=== PATIENT | male | born 1945 | race Caucasian/White ===

== ENCOUNTER 2020-01-10 08:03 | Outpatient (CLI) | payer MEDICARE, BC, OTHER, SELFPAY ==
--- NOTE | ~2020-01-10 | CT_ITS ---
EXAMINATION: CT abdomen pelvis w con DATE: 01/10/2020 08:57 INDICATION: Prostate cancer TECHNIQUE: Computed tomography (CT) of the abdomen and pelvis was performed with 100 cc Omnipaque 350 intravenous contrast. The dose-length product was 473.31 mGy-cm. Automated exposure control and iter ative reconstruction technique were employed. COMPARISON: None. FINDINGS: Dependent atelectasis lung bases. Heart size normal. No significant vascular abnormality. N o lymphadenopathy. There are surgical changes consistent with vasectomy. Fatty infiltration of the liver. Small subcentimeter hypodensities of the liver, most likely benign c ysts or hemangioma. Gallbladder is present. The spleen, pancreas, adrenal glands and kidneys are unre markable. Enlarged prostate gland. Mild bladder wall thickening. Nonobstructive bowel gas pattern. No free air or free fluid. Levoscoliosis. Mild lumbar spondylosis. No osteolytic or osteoblastic lesions. IMPRESSION: 1. Enlarged prostate gland with bladder wall thickening which may be due to hypertrophy or cystitis. Reviewed, dictated and finalized at location B. IMPRESSION: 1. Enlarged prostate gland with bladder wall thickening which may be due to hyp ertrophy or cystitis.
[2020-01-10 08:46] LABS: Estimated Glomerular Filt Rate > 60
== END 2020-01-10 08:04 | disposition home or self-care (01) ==
PROVIDERS: PCP Family Medicine; Visit Provider Urology
DX: C61 Malignant neoplasm of prostate (principal)
CPT/HCPCS: 36415; 74177; Q9967

== ENCOUNTER 2020-01-22 07:46 | Outpatient (CLI) | payer MEDICARE, BC, OTHER, SELFPAY ==
--- NOTE | 2020-01-22 08:50 | ECG_ITS ---
Measurements Intervals [place] Rate: 64 P: 28 IA: 165 QRS: 6 QRSD: 94 T: 83 QT: 398 QTc: 413 Interpretive Statements SINUS RHYTHM NONSPECIFIC T-WAVE ABNORMALITY- HIGH LATERAL LEADS BASELINE WANDER- V4 BORDERLINE ECG Electronically Signed On 01-22-2020 9:07:20 CDT by Jesus Crooks D.O.
[2020-01-22 09:26] LABS: Basophils Percent Auto 0.5 % (0.2-1.2); Eosinophils Absolute Auto 0.1 K/mm3 (0-0.3); Eosinophils Percent Auto 3.5 % (0-4.4); Hematocrit 44.8 % (42.0-52.0); Immature Granulocyte Absolute 0.02 K/mm3 (0.00-0.031); Immature Granulocyte Percent A 0.5 % (0-0.5); Lymphocytes Absolute Auto 1.33 K/mm3 (0.9-3.2); Lymphocytes Percent Auto 33.3 % (18.3-44.2); Mean Corpuscular HGB Conc 33.5 g/dl (32-36); Mean Corpuscular Hemoglobin 31.9 pg (26-34); Mean Corpuscular Volume 95.3 fl (80-100); Mean Platelet Volume 10.2 fl (7.4-10.4); Monocytes Absolute Auto 0.4 K/mm3 (0.1-0.6); Monocytes Percent Auto 9.5 % (2.6-8.5); Neutrophils Absolute Auto 2.1 K/mm3 (1.3-6.7); Neutrophils Percent Auto 52.7 % (45.5-73.1); Platelet Count Result 161 k/mm3 (150-375); Red Cell Distribution Width 12.6 % (11.5-14.5)
[2020-01-22 09:33] LABS: INR 1.1; Prothrombin Time 13.4 Seconds (11.1-14.7)
[2020-01-22 09:34] LABS: Partial Thromboplastin Time 27.6 SECONDS (22.3-36.8)
[2020-01-22 09:39] LABS: Alanine Aminotransferase 28 U/L (4-50); Albumin Level 4.4 g/dL (3.5-5.1); Alkaline Phosphatase 57 U/L (38-126); Anion Gap 9.1 mmol/L (7-16); Aspartate Amino Transferase 27 U/L (17-59); Bilirubin,Total 0.6 mg/dL (0.2-1.3); Blood Urea Nitrogen 10 mg/dL (9-20); Calcium 9.4 mg/dL (8.4-10.2); Carbon Dioxide 29 mmol/L (22-30); Chloride 105 mmol/L (98-107); Estimated Glomerular Filt Rate > 60; Glucose 80 mg/dL (75-110); Potassium 4.1 mmol/L (3.4-5.0); Sodium 139 mmol/L (137-145)
== END 2020-01-22 07:47 | disposition home or self-care (01) ==
LOC: ANHSURGERY 07:50
PROVIDERS: PCP Family Medicine; Visit Provider Urology
DX: C61 Malignant neoplasm of prostate (principal); R94.31 Abnormal electrocardiogram [ECG] [EKG]
CPT/HCPCS: 36415; 80053; 85025; 85610; 85730; 86850; 86900; 86901; 87086; 93005

== ENCOUNTER 2020-01-26 00:54 | Outpatient (CLI) | payer MEDICARE, BC, OTHER, SELFPAY ==
[2020-01-26 18:30] LABS: SARS-CoV-2 RNA PCR Negative
== END 2020-01-26 00:55 | disposition home or self-care (01) ==
LOC: ANHCOVIDDT 00:55
PROVIDERS: PCP Family Medicine; Visit Provider Urology
DX: Z01.812 Encounter for preprocedural laboratory examination (principal); Z11.59 Encounter for screening for other viral diseases
CPT/HCPCS: 87635; C9803; U0003

== ENCOUNTER 2020-01-29 13:40 | Inpatient (IN) | payer MEDICARE, BC, OTHER, SELFPAY ==
[2020-01-22 08:18] VITALS: BP 156/80; PULSE 78; RESP 20; TEMP 36.7; O2SAT 97; BMI 24.2
--- NOTE | 2020-01-28 10:06 | WPDANESEPP ---
Anes - Eval Pre Procedure Procedure: Operation Date: 01/29/20 07:30 Proposed Procedures p Robotic Assisted Nerve Sparing Prostatectomy With Pelvic Lymph Node Dissection - Jama Meredith MD Date/Time: 01/28/20 10:06 Pre Op Diagnosis: Prostate Ca Patient Data Age: 74 Gender: M Height: 1.83 m Weight: 81 kg Last Vital Signs Temp 36.7 C 01/22/20 08:18 Pulse 78 01/22/20 08:18 Resp 20 01/22/20 08:18 BP 156/80 H 01/22/20 08:18 Pulse Ox 97 01/22/20 08:18 Allergies Allergy/AdvReac Type Severity Reaction Status Date / Time No Known Allergies Allergy Unverified 01/22/20 08:10 Home Medications Medication Instructions Recorded Confirmed Type aspirin 81 mg tablet,delayed 81 mg PO DAILY 06/01/19 01/22/20 History release cholecalciferol (vitamin D3) 25 1,000 unit PO DAILY 06/01/19 01/22/20 History mcg (1,000 unit) tablet fluticasone propionate 50 2 spray NASAL BID #54.6 ml 08/14/19 01/22/20 Rx mcg/actuation nasal spray,suspension metronidazole 0.75 % topical cream 1 applic TOPICAL BID #45 gm 01/15/20 01/22/20 Rx tamsulosin 0.4 mg capsule 0.4 mg PO DAILY #90 cap 01/15/20 01/22/20 Rx azelastine 137 mcg (0.1 %) nasal 137 mcg NASAL Q12H #30 ml 01/18/20 01/22/20 Rx spray aerosol calcium carbonate-vitamin D3 1 cap PO DAILY 01/22/20 01/22/20 History [Calcium 600 + D(3)] doxycycline monohydrate 100 mg PO HS 01/22/20 01/22/20 History Patient hx anesthesia problems: none Family hx anesthesia problems: none PMFSH Past Medical History Medical History Alcohol use 2 drinks/day Arthritis BP (high blood pressure) BPH (benign prostatic hyperplasia) Degenerative disc disease Enlarged prostate GERD (gastroesophageal reflux disease) MALINDA (obstructive sleep apnea) Rosacea Stroke Surgical History Surgical History History of tonsillectomy History of tonsillectomy and adenoidectomy History of vasectomy Family History Family History Mother Family history of Alzheimer's disease Osteoporosis Arthritis Father , From throat cancer. Family history of throat cancer, Onset Age: 49 Social History Social History Smoking packs per day: 1 Smoking cigarettes per day: 20.0 Smoking status: Former smoker Tobacco type: cigarettes Second hand tobacco smoke exposure: No Smoking end date: 06/27/86 Additional smoking assessment comments: 1PK/DAY/AGE [age] Alcohol intake: current Drinks per week: 14 Substance use: never Substance use type: does not use Additional living arrangements comments: Spouse-Inessa Khan Gender identity (if verbalized by the patient): Male Spiritual care concerns: No Exam Day of Procedure 01/28/20 10:06
[2020-01-29] VITALS (15 sets, daily range): BP systolic 119–169; BP diastolic 70–96; PULSE 73–92; RESP 10–20; TEMP 36.4–37.2; O2SAT 97–100; BMI 24.6
[2020-01-29] MEDS: LACTATED RINGERS 1,000 ML 30 ML IV CONT ×2 (06:53→11:53)
--- NOTE | 2020-01-29 07:02 | P.PNAN_ITS ---
Anes - Eval Final PreProcedure Day of Procedure 01/29/20 07:02 Patient weight: normal Heart: regular rate and rhythm Lungs: clear to auscultation Airway: Mallampati scale class II Neurological: alert and oriented Last oral intake: >/= 8 hours ASA classification: III Emergent: no Anesthetic plan: proceed Anesthesia type and monitoring: general ETT and standard monitoring Informed Consent: The patient's anesthetic plan and its attendant risks and b enefits were discussed with the patient/family/POA. Questions were solicited and answers provided to the satisfaction of the patient/family/POA.
--- NOTE | 2020-01-29 07:16 | WPDHPUPDATE1 ---
History and Physical Update Update Date/Time: 01/29/20 07:16 History and Physical has been reviewed, including an updated exam of the patient. There are NO changes in the patient's condition. Risks, benefits, and alternatives have been discussed and questions answered. Patient agrees to proceed with procedure. Plan for robotic assist nerve sparing prostatectomy with possible PLND
[2020-01-29] MEDS: ceFAZolin 2 GM/D5W 50 ML 2 GM/50 ML BAG IVPB (07:25)
--- NOTE | 2020-01-29 11:36 | PM.PROC ---
Procedure Note - Detailed Date of procedure: 01/29/20 Pre-op diagnosis: Prostate Ca Post-op diagnosis: same Procedure performed: Robotic assisted nerve-sparing prostatectomy with left pelvic lymph node dissection and urethral dilation Description of procedure: patient was taken to the operative suite and correctly identified. Once anesthesia was obtained was placed in dorsal lithotomy position and prepped and draped usual sterile fashion. Was difficult to place a 20 Indonesian Edouard as his meatus was somewhat tight. We thus dilated up to 22 Indonesian with male sounds. A 20 Indonesian Edouard was then placed inflated with 15 cc sterile water. The supraumbilical incision was then made carried down to the rectus fascia. Veress needle was then inserted in the abdomen was insufflated to 15 mmHg pressure. Camera port was then placed under direct vision. Appropriate working ports were placed in the their usual positions. Patient was placed in steep Trendelenburg position and the robot was docked. He did have quite a bit of adhesions along the sigmoid colon area. These were taken down. Posterior approach was then performed. Seminal vesicles were dissected out in their entirety and the vas were transected. Dorsal venous complex was isolated using 0 Vicryl in secured to the pubic bone. Bladder neck was then incised. Posterior bladder neck was open. There was a good bladder neck sparing procedure performed. Bilateral nerve-sparing then was performed a standard fashion. Pedicles were isolated and clipped. Dorsal venous complex was transected. Urethra was also transected. Specimen was placed in Endo-Catch bag. We did a left pelvic lymph node dissection. As that was the side of involvement of the carcinoma on the prostate biopsy. Boundaries were the Graham's ligament distally. external iliac vein dorsally in the obturator nerve ventrally. Proximally to the bifurcation of the vessels. Surgicel was placed over the neurovascular bundle. As well as in the left obturator fossa. We then approximated the posterior denonvelliers. The urethral stump was then anastomosed to the bladder neck using V lock suture in a running fashion. There was good mucosa to mucosa approximation. Eighteen Indonesian Edouard was placed with 10 cc in the balloon. The bladder was filled with 120 cc of sterile water. There was no evidence of extravasation. Price-Young drain was then placed through the 3rd arm port site. This was then secured. The robot was undocked. All lap count needle count sponge counts were correct. Specimen was then brought out through midline incision. Rectus was closed using 0 Vicryl in a running fashion. Subcuticular stitches were then placed. We anesthetized the port sites using 1% lidocaine. Patient tolerated procedure well without complications and was taken recovery room stable condition. Anesthesia: JUJUA Surgeon: Jama Meredith MD Estimated blood loss (mL): 250 Drains: Yes Packing: No Pathology: yes Complications: No immediate complications Condition: stable Disposition: PACU
[2020-01-29] MEDS: ONDANSETRON INJ 4 MG/2 ML VIAL IV PUSH (12:09)
--- NOTE | 2020-01-29 13:05 | SUR.PHASEI ---
1304 - Dr. Meredith at bedside assessing LANDON drain and catheter
--- NOTE | 2020-01-29 16:19 | PC.NURSE ---
[id number] This patient, Manuel Khan, was admitted to [facility] Surg Room 310-01. Patient/family oriented to hospital policies and general routines including ID bracelet, bed and alarms, visiting hours, pain management, procedures, bathroom and other care routines, personal items, smoking policy, room service/diet, and visiting hours. Valuables list has been completed. Information on how to activate the Rapid Response Team has been discussed. Patient/Family are encouraged to report perceived risks to care and to ask questions if they do not understand what they are told or what they should do.
[2020-01-29] MEDS: LACTATED RINGERS 1,000 ML 125 ML IV CONT (18:51)
[2020-01-29] MEDS: KETOROLAC 15 MG/ML VIAL (*BKC) IV PUSH (20:46)
[2020-01-30 04:29] VITALS: BP 148/89; PULSE 86; RESP 20; TEMP 37.1; O2SAT 99
[2020-01-30 06:00] VITALS: BP 155/83; PULSE 90; RESP 16; TEMP 37; O2SAT 99
[2020-01-30 06:06] LABS: Hematocrit 42.4 % (42.0-52.0); Hemoglobin 14.4 g/dL (14.0-18.0)
[2020-01-30 06:17] LABS: Blood Urea Nitrogen 10 mg/dL (9-20); Carbon Dioxide 28 mmol/L (22-30); Chloride 107 mmol/L (98-107); Estimated CRCL calculation 80 ml/min; Estimated Glomerular Filt Rate > 60; Glucose 121 mg/dL (75-110); Sodium 140 mmol/L (137-145)
[2020-01-30] MEDS: KETOROLAC 15 MG/ML VIAL (*BKC) IV PUSH (06:33)
--- NOTE | 2020-01-30 07:13 | WPDANESPN ---
Anes - Prog Note Post-Op Date/Time: 01/30/20 07:13 Cardiovascular status: normal Respiratory status: normal Airway patency: baseline Mental status: baseline Post-Op hydration status: normal Vital Signs: Last Vital Signs Temp 98.8 F 01/30/20 04:29 Pulse 86 01/30/20 04:29 Resp 20 01/30/20 04:29 BP 148/89 H 01/30/20 04:29 Pulse Ox 99 01/30/20 04:29 I/O: Intake & Output 01/29/20 01/29/20 01/30/20 15:59 23:59 07:59 Intake Total 450 1000 900 Output Total 887 894 5388 Balance -150 248 -2160 Laboratory Tests 01/30/20 05:33 01/30/20 05:33 01/30/20 01/30/20 05:33 05:33 Hgb 14.4 Hct 42.4 Sodium 140 Potassium 4.0 Chloride 107 Carbon Dioxide 28 Anion Gap 9.0 BUN 10 Creatinine 0.80 Estim Creat Clear Calc 80 Estimated GFR > 60 Glucose 121 H Calcium 9.0 Post-procedural complaints: none Patient Feedback: Patient satisfied with anesthetic care.
[2020-01-30 07:25] VITALS: BP 155/83; PULSE 90; RESP 16; TEMP 37; O2SAT 99
[2020-01-30 08:10] VITALS: O2SAT 96
[2020-01-30] MEDS: LACTATED RINGERS 1,000 ML 125 ML IV CONT (08:14)
--- NOTE | 2020-01-30 09:01 | WPDUROPN2 ---
Progress Note: A&P Assessment and Plan (1) Prostate cancer: Code(s): C61 - Malignant neoplasm of prostate Status: Acute Assessment and Plan: Patient doing very well postoperatively. Will re-assess around noon and likely discharge home. Patient to increase activity and continue to eat and drink normally. Subjective Subjective Date/Time Seen: 01/30/20 09:01 POD #1 Robotic assisted nerve-sparing prostatectomy with left pelvic lymph node dissection and urethral dilation Patient doing well, sitting up in the chair to eat breakfast. Slightly nauseated but keeping food and drinks down. Patient feels good otherwise and his pain is managable. Review of Systems Cardiovascular: Cardiovascular: Denies chest pain Respiratory: Respiratory: Reports no additional respiratory complaints Gastrointestinal: Gastrointestinal: Reports nausea and Denies vomiting Genitourinary: Genitourinary: Denies hematuria Exam Resp: Effort & Inspection: normal respiratory effort Cardio: Rate: regular rate GI: Inspection: incision (LANDON drain is draining to gravity, minimal output) GI Palp: Yes Soft to palpation and Yes Tenderness to palpation present (GI) (at incision sites only, no edema, incisions are well approximated) Urinary Catheter: Urinary Catheter: patent and draining and urine clear Extrem: General: no edema Objective Data Vital Signs Vital Signs: Vital Signs - 24 hr 01/29/20 11:53 01/29/20 12:05 01/29/20 12:20 Temperature 99.0 F Pulse Rate 81 75 83 Respiratory Rate 10 L 12 18 Blood Pressure 119/78 154/81 H 148/75 H Pulse Oximetry 100 98 100 01/29/20 12:35 01/29/20 12:50 01/29/20 13:05 Temperature Pulse Rate 89 91 90 Respiratory Rate 14 18 20 Blood Pressure 152/84 H 165/86 H 168/96 H Pulse Oximetry 100 100 100 01/29/20 13:20 01/29/20 13:35 01/29/20 13:45 Temperature Pulse Rate 83 89 87 Respiratory Rate 18 13 18 Blood Pressure 160/94 H 168/90 H 165/78 H Pulse Oximetry 100 100 100 01/29/20 14:00 01/29/20 14:30 01/29/20 15:30 Temperature 98.1 F Pulse Rate 85 80 78 Respiratory Rate 18 18 18 Blood Pressure 169/82 H 150/78 H 145/70 H Pulse Oximetry 100 100 100 01/29/20 20:00 01/29/20 23:45 01/30/20 04:29 Temperature 98.7 F 98.4 F 98.8 F Pulse Rate 89 89 86 Respiratory Rate 18 18 20 Blood Pressure 143/88 H 153/83 H 148/89 H Pulse Oximetry 100 100 99 01/30/20 06:00 01/30/20 07:25 Temperature 98.6 F 98.6 F Pulse Rate 90 90 Respiratory Rate 16 16 Blood Pressure 155/83 H 155/83 H Pulse Oximetry 99 99 Intake/Output Intake/Output: Intake & Output 01/27/20 01/28/20 01/29/20 01/30/20 23:59 23:59 23:59 23:59 Intake Total 1450 1900 Output Total 1352 3060 Balance 98 -1160 Meds/Results Medications: Active Medications Generic Name Dose Route Start Last Admin Trade Name Freq PRN Reason Stop Dose Admin Hydrocodone Bitart/Acetaminophen 1 tab 01/29/20 13:40 [place] 5-325 Mg PO Q6H PRN Pain Rated 1-3 Hydrocodone Bitart/Acetaminophen 2 tab 01/29/20 13:40 [place] 5-325 Mg PO Q6H PRN Pain Rated 4-6 Hyoscyamine 0.125 mg 01/29/20 13:40 Levsin Tablet SUBLINGUAL Q4H PRN Bladder Spasm Lactated Ringer's 1,000 mls @ 125 mls/hr 01/29/20 13:40 01/30/20 08:14 Lr - Lactated Ringers Iv IV CONT 125 mls/hr .Q8H YU Administration Ketorolac Tromethamine 15 mg 01/29/20 13:40 01/30/20 06:33 Toradol Inj IV PUSH 01/30/20 13:41 15 mg Q6H PRN Administration Pain Rated 4-6 Levofloxacin 500 mg 01/30/20 09:00 Levaquin Tab PO DAILY YU Morphine Sulfate 1 mg 01/29/20 13:40 Morphine Sulfate Inj IV PUSH Q2H PRN Pain Rated 7-10 Morphine Sulfate 2 mg 01/29/20 13:40 Morphine Sulfate Inj IV PUSH Q2H PRN Pain Rated 7-10 Naloxone HCl 0.1 mg 01/29/20 13:40 Narcan IV PUSH Q2M PRN Opiate Reversal Labs Labs: Laboratory Results - last 24 hr 01/30/20
--- NOTE | 2020-01-30 14:00 | PC.NURSE ---
Patient ate lunch and had no nausea.
--- NOTE | 2020-01-30 14:21 | DS_ITS ---
DATE OF DISCHARGE: PREOPERATIVE DIAGNOSIS: Prostate cancer. POSTOPERATIVE DIAGNOSIS: Prostate cancer. PROCEDURE PERFORMED: Robotic assisted nerve-sparing prostatectomy with left pelvic lymph node dissection and urethral dilation per Dr. Jama Meredith on January 29, 2020. HOSPITAL COURSE: The patient tolerated procedure well, was transferred to recovery in stable condition and to the floor for further observation. The patient did well overnight and is okay to be discharged home today. Resume all home medications except aspirin to be held until Tuesday. The patient will also go home with [place] 5/325 mg q.4 hours as needed for pain, and Bactrim once daily to prevent postop infection. The patient will resume regular diet. Activity as tolerated. The patient will follow up for cystogram on February 05 at 07:30 in the morning and then to the office for catheter removal. LANDON drain will be removed today before discharge. Melani I MT: Nam
== END 2020-01-30 14:30 | disposition home or self-care (01) | DRG 708 ==
LOC: ANH3MEDSUR 13:44
PROVIDERS: Admitting Provider Urology; PCP Family Medicine; Visit Provider Urology
PROC: 0VT04ZZ Resection of Prostate, Percutaneous Endoscopic Approach (ICD-10-PCS; CPT 55867; principal; 2020-01-29 07:30)
DX: C61 Malignant neoplasm of prostate (principal); R03.0 Elevated blood-pressure reading, without diagnosis of hypertension; Z79.82 Long term (current) use of aspirin; Z87.891 Personal history of nicotine dependence; Z79.899 Other long term (current) drug therapy; Z86.73 Personal history of transient ischemic attack (TIA), and cerebral infarction without residual deficits
CPT/HCPCS: 36415; 80048; 85014; 85018; 88305; 88307; 88309; A9270; J0690; J1100; J1170; J1885; J2370; J2405; J2704; J2710; J3010; J7030; J7120; Q9968

== ENCOUNTER 2020-02-06 07:57 | Outpatient (CLI) | payer MEDICARE, BC, OTHER, SELFPAY ==
--- NOTE | ~2020-02-06 | XR_ITS ---
EXAMINATION: CYSTOGRAM DATE: 02/06/2020 08:38 INDICATION: Prostate cancer 7 days post prostatectomy TECHNIQUE: Initial pipe blanks cut off saw operator radiograph of the pelvis was performed. There was retrograde administration of Omnipaque 350 mixed with saline contrast into patient's existing Edouard catheter. Fluoroscopic mariza ges of the pelvis were obtained. A post-void image was also performed. 15 fluoroscopic images were re corded. Fluoroscopy exposure time was 0.3 minutes. FINDINGS: No bladder leak. Mild trabeculation of the bladder wall with a small right-sided diverticulum likely sequela of chronic outlet obstruction. No vesicoureteral reflux. IMPRESSION: 1. No bladder leak. Reviewed, dictated and finalized at location A. IMPRESSION: 1. No bladder leak.
== END 2020-02-06 07:58 | disposition home or self-care (01) ==
PROVIDERS: PCP Family Medicine; Visit Provider Urology
DX: C61 Malignant neoplasm of prostate (principal)
CPT/HCPCS: 51600; 74430; Q9967

== ENCOUNTER 2020-08-06 07:20 | Outpatient (CLI) | payer MEDICARE, BC, OTHER, SELFPAY ==
[2020-08-06 07:37] LABS: Basophils Percent Auto 0.5 % (0.2-1.2); Eosinophils Absolute Auto 0.2 K/mm3 (0-0.3); Eosinophils Percent Auto 4.2 % (0-4.4); Hematocrit 46.3 % (42.0-52.0); Hemoglobin 15.6 g/dL (14.0-18.0); Immature Granulocyte Absolute 0.01 K/mm3 (0.00-0.031); Immature Granulocyte Percent A 0.2 % (0-0.5); Lymphocytes Absolute Auto 1.41 K/mm3 (0.9-3.2); Lymphocytes Percent Auto 32.8 % (18.3-44.2); Mean Corpuscular HGB Conc 33.7 g/dl (32-36); Mean Corpuscular Volume 94.9 fl (80-100); Mean Platelet Volume 9.5 fl (7.4-10.4); Monocytes Absolute Auto 0.4 K/mm3 (0.1-0.6); Monocytes Percent Auto 8.6 % (2.6-8.5); Neutrophils Absolute Auto 2.3 K/mm3 (1.3-6.7); Neutrophils Percent Auto 53.7 % (45.5-73.1); Platelet Count Result 171 k/mm3 (150-375); Red Blood Count 4.88 M/mm3 (4.6-6.20); Red Cell Distribution Width 12.8 % (11.5-14.5); White Blood Count 4.3 K/mm3 (4.5-10.0)
[2020-08-06 07:49] LABS: Alanine Aminotransferase 30 U/L (4-50); Albumin Level 4.3 g/dL (3.5-5.1); Alkaline Phosphatase 56 U/L (38-126); Anion Gap 3 mmol/L (8-16); Aspartate Amino Transferase 31 U/L (17-59); Bilirubin,Total 0.9 mg/dL (0.2-1.3); Blood Urea Nitrogen 13 mg/dL (9-20); Calcium 9.4 mg/dL (8.4-10.2); Carbon Dioxide 33 mmol/L (22-30); Chloride 106 mmol/L (98-107); Cholesterol 191 mg/dL (0-200); Estimated Glomerular Filt Rate > 60; Glucose 95 mg/dL (75-110); HDL Direct 61 mg/dL; Potassium 4.1 mmol/L (3.4-5.0); Sodium 142 mmol/L (137-145); Triglycerides 57 mg/dL (<150)
[2020-08-06 08:00] LABS: LDL Cholesterol Direct 115 mg/dL
== END 2020-08-06 07:21 | disposition home or self-care (01) ==
PROVIDERS: PCP Family Medicine; Visit Provider Family Medicine
DX: E78.5 Hyperlipidemia, unspecified (principal); Z13.220 Encounter for screening for lipoid disorders; R03.0 Elevated blood-pressure reading, without diagnosis of hypertension
CPT/HCPCS: 36415; 80053; 80061; 85025

== ENCOUNTER 2020-08-08 10:07 | Outpatient (CLI) | payer MEDICARE, BC, OTHER, SELFPAY ==
--- NOTE | ~2020-08-08 | CT_ITS ---
EXAMINATION: CT sinus wo con DATE: 08/08/2020 10:30 INDICATION: Chronic sinusitis TECHNIQUE: Computed tomography (CT) of the paranasal sinuses was performed without intravenous contra st. The dose-length product was 274.44 mGy-cm. Automated exposure control and iterative reconstructio n technique were employed. COMPARISON: CT dated 02/08/2018 FINDINGS: There are mucous retention cysts in both maxillary sinuses. There is mild mucosal thickenin g of the ethmoid and maxillary sinuses. No air-fluid levels. Mastoids contain fluid, consistent with effusions. Leftward nasal septal deviation. IMPRESSION: 1. Mild sinus disease with retention cyst of the maxillary sinuses. 2: Bilateral mastoid effusions. Reviewed, dictated and finalized at location B. [employer]
== END 2020-08-08 10:08 | disposition home or self-care (01) ==
LOC: ANHIMG 10:11
PROVIDERS: PCP Family Medicine; Visit Provider Family Medicine
DX: J32.9 Chronic sinusitis, unspecified (principal); R93.0 Abnormal findings on diagnostic imaging of skull and head, not elsewhere classified
CPT/HCPCS: 70486

== ENCOUNTER 2021-02-12 08:58 | Outpatient (CLI) | payer MEDICARE, BC, OTHER, SELFPAY ==
--- NOTE | ~2021-02-12 | XR_ITS ---
EXAMINATION: XR hand RT min 3V DATE: 02/12/2021 09:20 INDICATION: Right hand pain, limited range of motion and palmar soft tissue swelling at the first met acarpal. TECHNIQUE: Posteroanterior, oblique and lateral views of the right hand were obtained. COMPARISON: None. FINDINGS: No traumatic malalignment or fracture. Severe osteoarthritis at the first and second metacarpophalang eal and second and third distal interphalangeal joints. There is secondary mild radial angulation at the second and third distal interphalangeal joints. Moderate osteoarthritis at the third metacarpopha langeal, first interphalangeal and fourth and fifth distal interphalangeal joints. Mild osteoarthriti s at the distal radioulnar, triscaphe, first carpometacarpal and remaining metacarpophalangeal and in terphalangeal joints. IMPRESSION: 1. 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 No acute osseous abnormality. Reviewed, dictated and finalized at location A. IMPRESSION: 1. 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 No acute osseous abnorm ality.
== END 2021-02-12 08:59 | disposition home or self-care (01) ==
PROVIDERS: PCP Family Medicine; Visit Provider Physician Assistant
DX: M79.89 Other specified soft tissue disorders (principal); S69.91XA Unspecified injury of right wrist, hand and finger(s), initial encounter; X58.XXXA Exposure to other specified factors, initial encounter; M19.041 Primary osteoarthritis, right hand
CPT/HCPCS: 73130

== ENCOUNTER 2021-04-16 07:50 | Outpatient (CLI) | payer MEDICARE, BC, OTHER, SELFPAY ==
--- NOTE | 2021-05-04 12:23 | WPDSLEEPSTUD ---
Sleep Study Date of Study: 04/16/21 <Tatiana Love, DO - Last Filed: 05/04/21 13:33> Ordering Provider: Zoran Wang APRN <Tatiana Love, DO - Last Filed: 05/04/21 13:33> Interpreting Physician: Tatiana Love DO <Tatiana Love DO - Last Filed: 05/04/21 13:33> Sleep Study Type: CPAP Titration <Tatiana Love DO - Last Filed: 05/04/21 13:33> Height: 1.78 m <Tatiana Love DO - Last Filed: 05/04/21 13:33> Weight: 83.915 kg <Tatiana Love DO - Last Filed: 05/04/21 13:33> Body Mass Index: 26.5 <Tatiana Love DO - Last Filed: 05/04/21 13:33> Neck Circumference (inches): 16 <Tatiana Love DO - Last Filed: 05/04/21 13:33> [place]: 5 <Tatiana Love DO - Last Filed: 05/04/21 13:33> Reason for Sleep Study Unrefreshing sleep despite being compliant with PAP Therapy. <Tatiana Love, DO - Last Filed: 05/04/21 13:33> Sleep History The patient is a 75 y/o male with essential hypertension, GERD, MALINDA on CPAP, hx of stroke, and history of prostate cancer s/p prostatectomy that was seen in the pulmonology office for consultation regarding his sleep apnea. The patient had a Split Night study on 01/24/2019 that showed an AHI of 16.7 in the diagnostic portion of the study. He was titrated to BPAP 14/10 with a decrease in his AHI to 8. Recommendations were made for either a repeat titration or autoPAP 8-14. The patient's complaince report from 01/09/2021-04/26/2021 showed that he used the autoPAP every day for at least 7 hours. His AHI for this time period is 1.9, PERRY of 1 and minimal leak. His pressure is usually at 12.1 cm H2O. The sleephistory intake packet was missing from the patient's chart. He drinks 3 cups of coffee/day. The patient quit smoking in 1986. He drinks 2 alcoholic beverages/day. He denies recreational drug use. <Tatiana Love DO - Last Filed: 05/04/21 13:33> [facility] Past Medical History Medical History: Medical History Alcohol use 2 drinks/day Arthritis BP (high blood pressure) BPH (benign prostatic hyperplasia) Degenerative disc disease Enlarged prostate GERD (gastroesophageal reflux disease) MALINDA (obstructive sleep apnea) Prostate cancer Rosacea Stroke <Tatiana Love DO - Last Filed: 05/04/21 13:33> Surgical History Surgical History: Surgical History H/O sinus surgery History of tonsillectomy History of tonsillectomy and adenoidectomy History of vasectomy S/P prostatectomy <Tatiana Love DO - Last Filed: 05/04/21 13:33> Family History Family History: Family History Mother Family history of Alzheimer's disease Osteoporosis Arthritis Father , From throat cancer. Family history of throat cancer, Onset Age: 49 <Tatiana Love DO - Last Filed: 05/04/21 13:33> Social History Social History: Social History Social History: Smoking packs per day: 1 Smoking cigarettes per day: 20.0 Smoking status: Former smoker Tobacco type: cigarettes Second hand tobacco smoke exposure: No Smoking end date: 06/27/86 Additional smoking assessment comments: 1PK/DAY/AGE [age] Alcohol intake: current Drinks per week: 14 Alcohol use details: 2 DRINKS DAILY Substance use: never Substance use type: does not use Additional living arrangements comments: Spouse-Inessa Khan Gender identity (if verbalized by the patient): Male Sexual Orientation (if Verbalized by the Patient): Straight or Heterosexual Spiritual care concerns: Yes <Tatiana Love, DO - Last Filed: 05/04/21 13:33> Medications Home Medications: Home Medications Medication Instructions
[2021-05-04 12:36] VITALS: BMI 26.5
== END 2021-04-17 07:47 | disposition home or self-care (01) ==
PROVIDERS: PCP Family Medicine; Visit Provider Nurse Practitioner Family
DX: G47.33 Obstructive sleep apnea (adult) (pediatric) (principal)
CPT/HCPCS: 95811

== ENCOUNTER 2021-06-03 09:14 | Outpatient (CLI) | payer MEDICARE, BC, OTHER, SELFPAY | END 2021-06-03 09:15 | disposition home or self-care (01) | PROVIDERS: PCP Family Medicine; Visit Provider Nurse Practitioner Family | DX: D64.9 Anemia, unspecified (principal) | CPT/HCPCS: 36415; 82728 ==

== ENCOUNTER 2021-07-13 07:08 | Outpatient (CLI) | payer MEDICARE, BC, OTHER, SELFPAY ==
[2021-07-13 08:05] LABS: Basophils Percent Auto 0.6 % (0.2-1.2); Eosinophils Absolute Auto 0.2 K/mm3 (0-0.3); Eosinophils Percent Auto 3.9 % (0-4.4); Hematocrit 43.9 % (42.0-52.0); Hemoglobin 15.2 g/dL (14.0-18.0); Immature Granulocyte Absolute 0.02 K/mm3 (0.00-0.031); Immature Granulocyte Percent A 0.4 % (0-0.5); Lymphocytes Absolute Auto 1.46 K/mm3 (0.9-3.2); Lymphocytes Percent Auto 31.5 % (18.3-44.2); Mean Corpuscular HGB Conc 34.6 g/dl (32-36); Mean Corpuscular Hemoglobin 32.7 pg (26-34); Mean Corpuscular Volume 94.4 fl (80-100); Mean Platelet Volume 9.7 fl (7.4-10.4); Monocytes Absolute Auto 0.4 K/mm3 (0.1-0.6); Monocytes Percent Auto 8.6 % (2.6-8.5); Neutrophils Absolute Auto 2.5 K/mm3 (1.3-6.7); Platelet Count Result 180 k/mm3 (150-375); Red Blood Count 4.65 M/mm3 (4.6-6.20); Red Cell Distribution Width 12.5 % (11.5-14.5); White Blood Count 4.6 K/mm3 (4.5-10.0)
[2021-07-13 08:19] LABS: Alanine Aminotransferase 42 U/L (4-50); Albumin Level 4.4 g/dL (3.5-5.1); Alkaline Phosphatase 72 U/L (38-126); Anion Gap 8 mmol/L (8-16); Aspartate Amino Transferase 36 U/L (17-59); Bilirubin,Total 0.7 mg/dL (0.2-1.3); Blood Urea Nitrogen 17 mg/dL (9-20); Calcium 9.7 mg/dL (8.4-10.2); Carbon Dioxide 29 mmol/L (22-30); Chloride 104 mmol/L (98-107); Cholesterol 210 mg/dL (0-200); Estimated Glomerular Filt Rate > 60; Glucose 98 mg/dL (65-110); HDL Direct 57 mg/dL; Potassium 3.9 mmol/L (3.4-5.0); Sodium 141 mmol/L (137-145); Triglycerides 73 mg/dL (<150)
[2021-07-13 08:30] LABS: LDL Cholesterol Direct 131 mg/dL
[2021-07-13 08:47] LABS: Thyroid Stimulating Hormone 0.586 uIU/mL (0.465-4.680)
[2021-07-17 21:41] LABS: PSA, Free <0.01 ng/mL; PSA, Total <0.1 ng/mL (<=4.0)
== END 2021-07-13 07:09 | disposition home or self-care (01) ==
LOC: ANHLAB 07:14
PROVIDERS: PCP Family Medicine; Visit Provider Family Medicine
DX: C61 Malignant neoplasm of prostate (principal); N40.1 Benign prostatic hyperplasia with lower urinary tract symptoms; E04.1 Nontoxic single thyroid nodule; I10 Essential (primary) hypertension; E78.2 Mixed hyperlipidemia
CPT/HCPCS: 36415; 80053; 80061; 84153; 84154; 84443; 85025

== ENCOUNTER 2021-08-14 12:08 | Outpatient (CLI) | payer MEDICARE, BC, OTHER, SELFPAY ==
[2021-08-14 13:00] LABS: Magnesium 2.3 mg/dL (1.6-2.3)
[2021-08-17 05:03] LABS: Ionized Calcium 4.9 mg/dL (4.8-5.6)
== END 2021-08-14 12:09 | disposition home or self-care (01) ==
PROVIDERS: PCP Family Medicine; Visit Provider Internal Medicine Critical Care Medicine
DX: G47.62 Sleep related leg cramps (principal)
CPT/HCPCS: 36415; 82330; 83735

== ENCOUNTER 2021-12-09 14:25 | Outpatient (CLI) | payer MEDICARE, BC, OTHER, SELFPAY ==
--- NOTE | ~2021-12-09 | CT_ITS ---
EXAMINATION: CT brain wo con DATE: 12/09/2021 14:40 INDICATION: Memory loss. TECHNIQUE: Computed tomography (CT) of the head was performed without intravenous contrast. The mA wa s adjusted according to patient size. Iterative reconstruction technique was employed. The dose-lengt h product was 605.33 mGy-cm. COMPARISON: Head CT 02/08/2018 FINDINGS: There is no intracranial hemorrhage, acute infarction, or abnormal intracranial mass lesion . The ventricles are normal in size. There is mild mucosal thickening in the paranasal sinuses. There are bilateral mastoid effusions. The orbits are normal. IMPRESSION: 1. Normal brain. Reviewed, dictated and finalized at location B. IMPRESSION: 1. Normal brain.
== END 2021-12-09 14:26 | disposition home or self-care (01) ==
PROVIDERS: PCP Family Medicine; Visit Provider Nurse Practitioner Gerontology
DX: R41.3 Other amnesia (principal)
CPT/HCPCS: 70450

== ENCOUNTER 2022-02-02 06:32 | Outpatient (CLI) | payer MEDICARE, BC, OTHER, SELFPAY ==
--- NOTE | 2022-02-02 09:57 | WPDNEUROLOGY ---
Neurology EEG Report General Information Date of Study: 02/02/22 TEST eeg DIAGNOSIS Amnesia CONDITION OF RECORDING awake drowsy and sleep EEG NUMBER [id number] CLINICAL HISTORY patient reports that his noticed a decline in his short-term memory and now she is noticing it also EEG DESCRIPTION hold record consists of poorly organized low voltage 8 to 9 hertz per 2nd alpha admixed with low-voltage 15 to 18 hertz per 2nd beta activity. Multiple EKG artifacts seen throughout the tracing. Hyperventilation not done. Photic stimulation produced poor drive. Non paroxysmal. Nonfocal. Nonlateralizing. IMPRESSION Abnormal record due to the absence of the normal background rhythm but there is no evidence of any paroxysmal activity or excessive amount of theta or delta activity clinical correlation recommended
== END 2022-02-02 06:33 | disposition home or self-care (01) ==
LOC: ANHNEURO 06:34
PROVIDERS: PCP Family Medicine; Visit Provider Psychiatry & Neurology Neurology
DX: R41.3 Other amnesia (principal); R94.01 Abnormal electroencephalogram [EEG]
CPT/HCPCS: 95816

== ENCOUNTER 2022-12-15 06:47 | Outpatient (CLI) | payer MEDICARE, BC, OTHER, SELFPAY ==
[2022-12-15 07:52] LABS: Basophils Percent Auto 0.4 % (0.2-1.2); Eosinophils Absolute Auto 0.2 K/mm3 (0-0.3); Eosinophils Percent Auto 3.5 % (0-4.4); Hematocrit 45.3 % (42.0-52.0); Hemoglobin 14.9 g/dL (14.0-18.0); Immature Granulocyte Absolute 0.01 K/mm3 (0.00-0.031); Immature Granulocyte Percent A 0.2 % (0-0.5); Lymphocytes Absolute Auto 1.41 K/mm3 (0.9-3.2); Lymphocytes Percent Auto 29.1 % (18.3-44.2); Mean Corpuscular HGB Conc 32.9 g/dl (32-36); Mean Corpuscular Hemoglobin 31.8 pg (26-34); Mean Corpuscular Volume 96.6 fl (80-100); Mean Platelet Volume 10.4 fl (7.4-10.4); Monocytes Absolute Auto 0.4 K/mm3 (0.1-0.6); Monocytes Percent Auto 7.9 % (2.6-8.5); Neutrophils Absolute Auto 2.9 K/mm3 (1.3-6.7); Neutrophils Percent Auto 58.9 % (45.5-73.1); Platelet Count Result 179 k/mm3 (150-375); Red Blood Count 4.69 M/mm3 (4.6-6.20); Red Cell Distribution Width 12.7 % (11.5-14.5); White Blood Count 4.8 K/mm3 (4.5-10.0)
[2022-12-15 08:02] LABS: Alanine Aminotransferase 28 U/L (6-50); Albumin Level 4.6 g/dL (3.5-5.1); Alkaline Phosphatase 65 U/L (38-126); Anion Gap 9 mmol/L (8-16); Aspartate Amino Transferase 25 U/L (17-59); Bilirubin,Total 0.7 mg/dL (0.2-1.3); Blood Urea Nitrogen 16 mg/dL (9-20); Carbon Dioxide 30 mmol/L (22-30); Chloride 103 mmol/L (98-107); Cholesterol 198 mg/dL (0-200); Estimated Glomerular Filt Rate > 60; Glucose 93 mg/dL (65-110); HDL Direct 88 mg/dL; Potassium 3.6 mmol/L (3.4-5.0); Sodium 142 mmol/L (137-145); Triglycerides 95 mg/dL (<150)
[2022-12-15 08:27] LABS: LDL Cholesterol Direct 108 mg/dL
[2022-12-20 14:50] LABS: Vitamin D 1,25 (OH)2 Total 61 pg/mL (18-72); Vitamin D2 1,25 (OH)2 <8 pg/mL; Vitamin D3 1,25 (OH)2 61 pg/mL
== END 2022-12-15 06:48 | disposition home or self-care (01) ==
PROVIDERS: PCP Family Medicine; Visit Provider Nurse Practitioner Gerontology
DX: G31.84 Mild cognitive impairment of uncertain or unknown etiology (principal); G47.33 Obstructive sleep apnea (adult) (pediatric); I10 Essential (primary) hypertension; K21.9 Gastro-esophageal reflux disease without esophagitis; R03.0 Elevated blood-pressure reading, without diagnosis of hypertension; E55.9 Vitamin D deficiency, unspecified
CPT/HCPCS: 36415; 80053; 80061; 82607; 82652; 84443; 85025

== ENCOUNTER 2023-03-17 06:59 | Outpatient (CLI) | payer MEDICARE, BC, OTHER, SELFPAY ==
[2023-03-17 08:25] LABS: CRP < 0.5 mg/dL (<1.0)
[2023-03-17 09:04] LABS: Erythrocyte Sedimentation Rate 12 mm/hr (0-20)
[2023-03-17 09:14] LABS: Thyroid Stimulating Hormone Reflex 0.545 uIU/mL (0.465-4.68)
[2023-03-17 09:22] LABS: Folic Acid 9.1 ng/mL (2.76->20)
[2023-04-02 11:38] LABS: Reference Lab Test Name Paraneoplastic Ab
== END 2023-03-17 07:00 | disposition home or self-care (01) ==
LOC: ANHLAB 07:05
PROVIDERS: PCP Family Medicine
DX: G31.84 Mild cognitive impairment of uncertain or unknown etiology (principal)
CPT/HCPCS: 36415; 82607; 82746; 84443; 85652; 86140

== ENCOUNTER 2023-03-27 07:25 | Outpatient (CLI) | payer MEDICARE, BC, OTHER, SELFPAY ==
--- NOTE | ~2023-03-27 | MR_ITS ---
EXAMINATION: MR brain/brain stem wo/w con DATE: 03/27/2023 08:11 INDICATION: Mild cognitive impairment with memory loss. TECHNIQUE: Magnetic resonance imaging (MRI) of the brain and brainstem was performed without and with 16 mL MultiHance intravenous contrast. COMPARISON: Brain MRI 02/08/2018, head CT 12/09/2021 FINDINGS: There is no intracranial hemorrhage, acute infarction, or abnormal intracranial mass lesion . The ventricles are normal in size. There is mucosal thickening in the paranasal sinuses. There is d ependent fluid in right maxillary sinus. There are likely changes of right ocular lens replacement garza rgery. There are bilateral mastoid effusions. IMPRESSION: 1. Normal brain. Reviewed, dictated and finalized at location E. IMPRESSION: 1. Normal brain.
== END 2023-03-27 07:26 | disposition home or self-care (01) ==
LOC: ANHIMG 07:29
PROVIDERS: PCP Family Medicine
DX: G31.84 Mild cognitive impairment of uncertain or unknown etiology (principal)
CPT/HCPCS: 70553; A9577

== ENCOUNTER 2023-07-13 10:00 | Outpatient (CLI) | payer MEDICARE, BC, OTHER, SELFPAY ==
--- NOTE | ~2023-07-13 | US_ITS ---
EXAMINATION: US carotid duplex BI DATE: 07/13/2023 10:53 INDICATION: Left carotid artery stenosis TECHNIQUE: Grayscale, color Doppler, and pulsed Doppler images of the cervical carotid arteries were obtained. The degree of vessel stenosis is placed in one of the following categories: normal, <50%, 5 0-69%, >=70% but less than near-occlusion, near-occlusion, or total occlusion. Note that percent sten osis relative to normal distal artery lumen diameter is indirectly measured from velocity measurement s as described by Gold, et al. Radiology 2003; 229:340-346. COMPARISON: 02-09-18 FINDINGS: RIGHT: The right common carotid artery (CCA) peak systolic velocity (PSV) is 113 cm/s. The right internal ca rotid artery (ICA) PSV is 54 cm/s. The right ICA end-diastolic velocity (EDV) is 14 cm/s. The right I CA/CCA PSV ratio is 0.5. Grayscale and color Doppler images yield an estimate of <50% diameter reduct ion from plaque in the ICA. The external carotid artery (ECA) PSV is 90 cm/s. There is antegrade flow in the right vertebral artery. LEFT: The left CCA PSV is 109 cm/s. The left ICA PSV is 48 cm/s. The left ICA EDV is 14 cm/s. The left ICA/ CCA PSV ratio is 0.4. Grayscale and color Doppler images yield an estimate of <50% diameter reduction from plaque in the ICA. The ECA PSV is 84 cm/s. There is antegrade flow in the left vertebral artery . IMPRESSION: 1. <50% stenosis in the right internal carotid artery. 2. <50% stenosis in the left internal carotid artery. Reviewed, dictated and finalized at location A. NOLOGIST INFECTIOUS DISEASE
== END 2023-07-13 10:01 | disposition home or self-care (01) ==
LOC: ANHIMG 10:01
PROVIDERS: PCP Family Medicine
DX: I65.23 Occlusion and stenosis of bilateral carotid arteries (principal)
CPT/HCPCS: 93880

== ENCOUNTER 2023-09-20 11:07 | Outpatient (CLI) | payer MEDICARE, BC, OTHER, SELFPAY ==
--- NOTE | ~2023-09-20 | US_ITS ---
EXAMINATION: US thyroid DATE: 09/20/2023 12:04 INDICATION: Nontoxic multinodular goiter. TECHNIQUE: Multiple ultrasound images of the thyroid were obtained. COMPARISON: None. FINDINGS: The right thyroid lobe measures 6.1 x 2.4 x 3.2 cm. The left thyroid lobe measures 6.1 x 2.6 x 3.0 c m. Multiple nodules scattered throughout the thyroid. Minimal increase in size of a previously 1.8 c m, currently 2.1 cm solid wider than tall hypoechoic nodule with mildly lobular margins and with a fe w internal echogenic foci and a slightly larger shadowing coarse calcification (TI-RADS 5, highly apryl picious , FNA if >=1.0 cm, annual followup is >0.5 cm). There are a few additional subcentimeter millicent d hypoechoic nodules which are wider than tall with smooth margins without echogenic foci (TI-RADS 4, moderately suspicious , FNA if >=1.5 cm, annual followup is >=1 cm), the largest of these in the rig ht thyroid measuring 8 mm. Diffuse mildly increased echogenicity and coarsened echotexture throughout the thyroid. IMPRESSION: 1. Multinodular goiter. Recommend ultrasound-guided biopsy of the 2.1 cm TI RADS 5 nodule in the righ t thyroid lobe. Reviewed, dictated and finalized at location A. IMPRESSION: 1. Multinodular goiter. Recommend ultrasound-guided biopsy of the 2.1 cm TI RAD S 5 nodule in the right thyroid lobe.
[2023-09-20 12:50] LABS: Basophils Percent Auto 0.6 % (0.2-1.2); Eosinophils Absolute Auto 0.1 K/mm3 (0-0.3); Eosinophils Percent Auto 1.8 % (0-4.4); Hematocrit 45.7 % (42.0-52.0); Hemoglobin 15.1 g/dL (14.0-18.0); Immature Granulocyte Absolute 0.02 K/mm3 (0.00-0.031); Immature Granulocyte Percent A 0.3 % (0-0.5); Lymphocytes Absolute Auto 1.77 K/mm3 (0.9-3.2); Lymphocytes Percent Auto 28.3 % (18.3-44.2); Mean Corpuscular Volume 96.8 fl (80-100); Mean Platelet Volume 10.1 fl (7.4-10.4); Monocytes Absolute Auto 0.5 K/mm3 (0.1-0.6); Monocytes Percent Auto 8.6 % (2.6-8.5); Neutrophils Absolute Auto 3.8 K/mm3 (1.3-6.7); Neutrophils Percent Auto 60.4 % (45.5-73.1); Platelet Count Result 170 k/mm3 (150-375); Red Blood Count 4.72 M/mm3 (4.6-6.20); Red Cell Distribution Width 12.3 % (11.5-14.5); White Blood Count 6.3 K/mm3 (4.5-10.0)
[2023-09-20 13:14] LABS: Alanine Aminotransferase 29 U/L (6-50); Albumin Level 4.3 g/dL (3.5-5.1); Alkaline Phosphatase 71 U/L (38-126); Anion Gap 4 mmol/L (4-12); Aspartate Amino Transferase 28 U/L (17-59); Bilirubin,Total 0.7 mg/dL (0.2-1.3); Blood Urea Nitrogen 16 mg/dL (9-20); Calcium 9.6 mg/dL (8.4-10.2); Carbon Dioxide 31 mmol/L (22-30); Chloride 106 mmol/L (98-107); Estimated Glomerular Filt Rate > 60; Glucose 88 mg/dL (65-110); Potassium 3.6 mmol/L (3.4-5.0); Sodium 141 mmol/L (137-145)
[2023-09-20 13:31] LABS: Free T4 Free Thyroxine 0.95 ng/mL (0.78-2.19)
[2023-09-20 13:43] LABS: Thyroid Stimulating Hormone 0.369 uIU/mL (0.465-4.680)
== END 2023-09-20 11:08 | disposition home or self-care (01) ==
PROVIDERS: PCP Family Medicine; Visit Provider Family Medicine
DX: E04.2 Nontoxic multinodular goiter (principal); R79.89 Other specified abnormal findings of blood chemistry; G31.84 Mild cognitive impairment of uncertain or unknown etiology; I10 Essential (primary) hypertension; R63.4 Abnormal weight loss
CPT/HCPCS: 36415; 76536; 80053; 82607; 84439; 84443; 85025

== ENCOUNTER 2023-10-18 12:32 | Outpatient (CLI) | payer MEDICARE, BC, OTHER, SELFPAY ==
--- NOTE | ~2023-10-18 | US_ITS ---
EXAMINATION: US FNA w image guidance DATE: 10/18/2023 13:44 INDICATION: Right thyroid mass TECHNIQUE: A time-out was performed to verify the patient's name, date of , and procedure to be performed . The procedure and its benefits and risks were discussed with the patient. Risks specifically discus sed included bleeding and infection. The patient understood the risks and agreed to proceed. The neck was prepped and draped in the usual sterile manner. 3 mL 1% lidocaine was used for local anesthesia . 6 passes were made with a 25G needle into the lesion. Appropriate needle location was documented with continuous sonographic guidance. A sterile bandage was applied. There were no immediate compli cations. FINDINGS: Grayscale ultrasound images demonstrate biopsy needles advanced into a TI RADS 5 nodule in the inferi or right thyroid which measure 2.1 cm on the prior study, 1.8 cm on the currently recorded images. IMPRESSION: 1. Successful ultrasound-guided fine needle aspiration of the previously noted 2.1 cm TI RADS 5 righ t thyroid mass. Reviewed, dictated and finalized at location A. IMPRESSION: 1. Successful ultrasound-guided fine needle aspiration of the previously noted 2.1 cm TI RADS 5 right thyroid mass.
== END 2023-10-18 12:33 | disposition home or self-care (01) ==
LOC: ANHIMG 12:33
PROVIDERS: PCP Family Medicine; Visit Provider Physician Assistant
DX: E04.1 Nontoxic single thyroid nodule (principal)
CPT/HCPCS: 10005; 88172; 88173; 88305

== ENCOUNTER 2024-02-20 11:38 | Emergency (ER) | payer MEDICARE, BC, OTHER, SELFPAY ==
--- NOTE | ~2024-02-20 | XR_ITS ---
EXAMINATION: XR chest 2V DATE: 02/20/2024 12:33 INDICATION: Chest pain TECHNIQUE: PA and lateral views of the chest were obtained. COMPARISON: Chest radiograph dated 02/08/2018 FINDINGS: Minimal linear discoid atelectasis at the left costophrenic angle. No other air space opacities, pulm onary edema, pleural effusion or pneumothorax. The cardiomediastinal silhouette is normal. Moderate t horacic spondylosis. IMPRESSION: 1. No acute cardiopulmonary disease. Reviewed, dictated and finalized at location A.
--- NOTE | 2024-02-20 11:39 | ECG_ITS ---
Test Date: 2024-02-20 11:47:05 Measurements Intervals [place] Rate: 60 P: 38 MS: 152 QRS: 23 QRSD: 83 T: 67 QT: 409 QTc: 409 Interpretive Statements SINUS RHYTHM NORMAL ELECTROCARDIOGRAM No previous ECG available for comparison Electronically Signed On 02-21-2024 07:23:37 CDT by Nitish Aguilar M.D.
[2024-02-20 11:58] LABS: Basophils Percent Auto 0.5 % (0.2-1.2); Eosinophils Absolute Auto 0.1 K/mm3 (0-0.3); Eosinophils Percent Auto 1.5 % (0-4.4); Hematocrit 45.1 % (42.0-52.0); Hemoglobin 15.5 g/dL (14.0-18.0); Immature Granulocyte Absolute 0.01 K/mm3 (0.00-0.031); Immature Granulocyte Percent A 0.2 % (0-0.5); Mean Corpuscular HGB Conc 34.4 g/dl (32-36); Mean Corpuscular Hemoglobin 32.8 pg (26-34); Mean Corpuscular Volume 95.3 fl (80-100); Mean Platelet Volume 9.9 fl (7.4-10.4); Monocytes Absolute Auto 0.5 K/mm3 (0.1-0.6); Monocytes Percent Auto 8.7 % (2.6-8.5); Neutrophils Absolute Auto 3.5 K/mm3 (1.3-6.7); Neutrophils Percent Auto 60.1 % (45.5-73.1); Platelet Count Result 159 k/mm3 (150-375); Red Blood Count 4.73 M/mm3 (4.6-6.20); Red Cell Distribution Width 13.2 % (11.5-14.5); White Blood Count 5.9 K/mm3 (4.5-10.0)
[2024-02-20 12:07] VITALS: BP 147/90; PULSE 64; RESP 16; TEMP 36.3; O2SAT 98
[2024-02-20 12:10] LABS: INR 0.9; Prothrombin Time 13.1 Seconds (11.1-14.7)
[2024-02-20 12:16] LABS: Alanine Aminotransferase 26 U/L (6-50); Albumin Level 4.4 g/dL (3.5-5.1); Alkaline Phosphatase 71 U/L (38-126); Anion Gap 10 mmol/L (4-12); Aspartate Amino Transferase 26 U/L (17-59); Bilirubin,Total 0.9 mg/dL (0.2-1.3); Blood Urea Nitrogen 12 mg/dL (9-20); Calcium 9.7 mg/dL (8.4-10.2); Carbon Dioxide 27 mmol/L (22-30); Chloride 103 mmol/L (98-107); Estimated CRCL calculation 71 ml/min; Estimated Glomerular Filt Rate > 60; Glucose 94 mg/dL (65-110); Lipase 62 U/L (23-300); Potassium 3.9 mmol/L (3.4-5.0); Sodium 140 mmol/L (137-145)
--- NOTE | 2024-02-20 12:19 | ED.CHESTPAIN ---
HPI - Chest Pain General Chief Complaint: Chest Pain Stated Complaint: chest pain Time Seen by Provider: 02/20/24 12:20 Focused HPI: This is a 78 year old male that presents to the ER for chest pain that started this morning around 10:30. Reports the pain was dull in nature. The episode has now resolved. Denies any associated symptoms. Denies shortness of breath. GENERAL: Well-appearing, well-nourished, and in no acute distress. HEAD: Normocephalic, atraumatic. CHEST: Clear to auscultation. ?No respiratory distress. HEART: Regular rate and rhythm.? NEURO: ?Alert and oriented x3. Patient screened in triage and initial orders placed.? ?Additional care and disposition to be based upon?diagnostic testing and treatment. Related Data Home Medications Medication Instructions Recorded Confirmed esomeprazole magnesium 20 mg 20 mg PO DAILY 02/11/22 12/02/23 capsule,delayed release (Nexium) memantine 5 mg tablet 10 mg PO BID 03/21/23 12/02/23 mirabegron 25 mg tablet,extended 25 mg PO DAILY 03/21/23 12/02/23 release 24 hr (Myrbetriq) calcium carbonate 600 mg-vitamin cap PO 04/11/23 12/02/23 D3 12.5 mcg (500 unit) capsule (Calcium 600 with Vitamin D3) donepezil 5 mg tablet 5 mg PO QHS 04/11/23 12/02/23 metronidazole 0.75 % topical cream 1 applic topical DAILY 04/11/23 12/02/23 Allergies Allergy/AdvReac Type Severity Reaction Status Date / Time No Known Allergies Allergy Verified 02/20/24 11:38 [facility] Past Medical History Medical History Acute right-sided low back pain without sciatica Alcohol use 2 drinks/day Amnesia Arthritis Arthritis BP (high blood pressure) BPH (benign prostatic hyperplasia) Degenerative disc disease Diplopia Elevated BP without diagnosis of hypertension Enlarged prostate GERD (gastroesophageal reflux disease) GERD with esophagitis Hypersomnia Jock itch Laceration of right thumb Lipid screening Mastoiditis of both sides MALINDA (obstructive sleep apnea) MALINDA (obstructive sleep apnea) Prostate cancer Retention cyst of paranasal sinus Rosacea Screening PSA (prostate specific antigen) Seborrheic keratosis Skin cancer Stroke Thyroid nodule Surgical History Surgical History H/O sinus surgery History of tonsillectomy History of tonsillectomy and adenoidectomy History of vasectomy S/P prostatectomy Family History Family History Mother Family history of Alzheimer's disease Osteoporosis Arthritis Father , From throat cancer. Family history of throat cancer, Onset Age: 49 Social History Social History Social History: Smoking packs per day: 1 Smoking cigarettes per day: 20.0 Smoking status: Former smoker Tobacco type: cigarettes Second hand tobacco smoke exposure: No Smoking end date: 06/27/86 Additional smoking assessment comments: 1PK/DAY/AGE 18-40 Alcohol intake: current Drinks per week: 14 Alcohol use details: 2 DRINKS DAILY Substance use: never Substance use type: does not use Lack of Transportation: No Lack of Food: Never True Current Housing: I Have Housing Concerned About Future Housing: No Difficulty Paying Gas/Electric Bills: No Difficulty Paying for Meds: No Currently Unemployed: No Education: Bachelor's Degree Difficulty w/ Childcare or Family Care: No Living arrangements: with family Additional living arrangements comments: Spouse-Inessa Khan Occupation/Education: retired Gender identity (if verbalized by the patient): Male Sexual Orientation (if Verbalized by the Patient): Straight or Heterosexual Spiritual care concerns: Yes Course Vital Signs Vital signs: Vital Signs Temperature 97.4 F L 02/20/24 12:07 Pulse Rate 64 02/20/24 12:07 Respiratory Rate 16 02/20/24 12:07
[2024-02-20 12:28] LABS: Troponin I < 0.012 ng/mL (0.000-0.034)
--- NOTE | 2024-02-20 14:53 | ECG_ITS ---
Test Date: 2024-02-20 15:00:13 Measurements Intervals [place] Rate: 65 P: 27 NV: 170 QRS: 4 QRSD: 81 T: 62 QT: 390 QTc: 405 Interpretive Statements SINUS RHYTHM NONSPECIFIC T-WAVE ABNORMALITY Compared to ECG 02/20/2024 11:47:05 NO SIGNIFICANT CHANGES Electronically Signed On 02-21-2024 15:28:47 CDT by Cornell Davila M.D.
[2024-02-20 15:26] LABS: Troponin I < 0.012 ng/mL (0.000-0.034)
== END 2024-02-20 19:04 | disposition left against medical advice (07) ==
LOC: ANHED 17:52
PROVIDERS: Student in an Organized Health Care Education/Training Program; Emergency Provider Physician Assistant; PCP Family Medicine
DX: R07.9 Chest pain, unspecified (principal); M19.90 Unspecified osteoarthritis, unspecified site; I10 Essential (primary) hypertension; N40.0 Benign prostatic hyperplasia without lower urinary tract symptoms; K21.9 Gastro-esophageal reflux disease without esophagitis; G47.30 Sleep apnea, unspecified
CPT/HCPCS: 36415; 71046; 80053; 83690; 84484; 85025; 85610; 85730; 93005; 99284

== ENCOUNTER 2024-04-06 06:50 | Outpatient (CLI) | payer MEDICARE, BC, OTHER, SELFPAY ==
[2024-04-06 08:10] LABS: Thyroid Stimulating Hormone 0.586 uIU/mL (0.465-4.680)
[2024-04-06 08:11] LABS: Free T4 Free Thyroxine 0.83 ng/mL (0.78-2.19)
[2024-04-07 09:34] LABS: Triiodothyronine T3 Free 3.4 pg/mL (2.3-4.2)
== END 2024-04-06 06:51 | disposition home or self-care (01) ==
PROVIDERS: PCP Family Medicine; Visit Provider Physician Assistant
DX: E07.9 Disorder of thyroid, unspecified (principal); R79.89 Other specified abnormal findings of blood chemistry
CPT/HCPCS: 36415; 84439; 84443; 84481

== ENCOUNTER 2024-08-09 15:44 | Outpatient (CLI) | payer MEDICARE, BC, OTHER, SELFPAY ==
--- NOTE | ~2024-08-09 | CT_ITS ---
EXAMINATION: CT IAC/mastoids BI wo con DATE: 08/09/2024 16:13 INDICATION: Fluid in ear. TECHNIQUE: Computed tomography (CT) of the temporal bones was performed without intravenous contrast. Automated exposure control and iterative reconstruction technique were employed. The dose-length pro duct was 301.39 mGy-cm. COMPARISON: Head CT 12/09/2021 FINDINGS: RIGHT TEMPORAL BONE: The internal auditory canal, cochlea, vestibule, semicircular canals, vestibular aqueduct, carotid ca nal, jugular bulb, facial nerve course, and ossicles are normal. There is a right otomastoid effusion including material in Prussak space. Scutum is normal. The tympanic membrane and external artery can als are normal. LEFT TEMPORAL BONE: The internal auditory canal, cochlea, vestibule, semicircular canals, vestibular aqueduct, and caroti d canal are normal. There is a high riding jugular bulb. The facial nerve course is normal. The ossic les are normal. There is a left otomastoid effusion including material in Prussak space. Scutum is no rmal. The external artery canal is normal. IMPRESSION: 1. Bilateral otomastoid effusions. No bone erosions identified to indicate chronic otitis media. Reviewed, dictated and finalized at location A. ISH INSPECTOR IMPRESSION: 1. Bilateral otomastoid effusions. No bone erosions identified to indicate chronic condition nurse umer otitis media.
--- OUTSIDE RECORDS SUMMARY | 2024-08-09 15:51 | XMS_ITS | Clinical Summary ---
Author Organization [facility] Address [address] [place] [address] Care Team Providers Care Digital Research Analyst Name Role Phone Oliva Andrade Primary Care Provider [phone] Medications esomeprazole (NEXIUM) 40 MG capsule Take 1 capsule (40 mg total) by mouth daily. 4 Active amLODIPine (NORVASC) 5 MG tablet Take 1 tablet (5 mg total) by mouth every evening. Active MYRBETRIQ 25 MG 24 hr tablet Take 1 tablet (25 mg total) by mouth daily. Active irbesartan (AVAPRO) 75 MG tablet Take 1 tablet (75 mg total) by mouth daily. 5 Active memantine (NAMENDA) 10 MG tabletIndicatio ns:Mild cognitive impairment Take 1 tablet (10 mg total) by mouth 2 (two) times daily. 180 tablet 3 5 07/24/19 26 Active donepezil (ARICEPT) 5 MG TabIndications: Mild cognitive impairment Take 1 tablet (5 mg total) by mouth nightly at bedtime. 90 tablet 3 5 07/24/19 26 Active memantine (NAMENDA) 10 MG tablet Take 1 tablet (10 mg total) by mouth 2 (two) times daily. 4 07/24/19 25 Discontinu ed(Reorder ) donepezil (ARICEPT) 5 MG Tab Take 1 tablet (5 mg total) by mouth nightly at bedtime. 5 07/24/19 25 Discontinu ed(Reorder ) donepezil (ARICEPT) 10 MG TabIndications: Mild cognitive impairment Take 1 tablet (10 mg total) by mouth nightly at bedtime. 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 [facility] [place] - [address], [address] [place] [phone] Isadora Lovell MD New Patient 07/24/2024 Travel from Last 3 Months Social History Tobacco Use Types Packs/Day Years Used Date Smoking Tobacco: Never Passive Smoke Exposure: Never Smokeless Tobacco: Never Tobacco Cessation:Counseling Given: Yes Alcohol Use Standard Drinks/Week Comments Not Currently 0 (1 standard drink = 0.6 oz pur e alcohol) PHQ-2 Answer Date Recorded Patient Health Questionnaire-2 Score 0 07/24/2024 Sex and Gender Information Value Date Recorded Sex Assigned at Not on file Legal Sex Male 2:11 PM CDT Gender Identity Not on file Sexual Orientation Not on file Last Filed Vital Signs Vital Sign Reading Time Taken Comments Blood Pressure 120/79 07/24/2024 10:48 AM 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 [place] - [address], [address] [place] [phone] Isadora Lovell MD [address] [place] [id number] Health Maintenance Due Date Last Done Comments Hepatitis C 1963 Annual Medicare Wellness Visit 2012 Pneumococcal Vaccine: 65+ Years (1 of 1 - PCV) 2012 DTaP, Tdap and Td Vaccines (3 - Td or Tdap) 04/05/2032 04/05/2022, 03/12/2020 Zoster Vaccines Completed 04/07/2021, 02/03/2021 RSV Immunization or 60+ Years Completed 04/04/2023 Influenza Adult Completed 03/03/2024, 02/25, 03/21/2021, Additional history exists COVID-19 Vaccine Completed 03/19/2024, , 03/20/2023, Additional history exists PHQ-2 (Physician [place]) Completed 07/24/2024 Meningococcal B Vaccine Aged Out No l onger eligible based on patient's age to complete this topic Meningococcal Vaccine Aged Out No ramya keyonna eligible based on patient's age to complete this topic RSV Immunizations Under 20 Months Aged Out No longer eligible based on patient's age to complete this topic Insurance [facility]ICARE [facility] Care Teams Digital Research Analyst Relationship Specialty Start Date End Date Oliva Andrade PA [address], [address] [place] [id number] PCP - General PHYSICIAN ACCOUNT DEVELOPMENT ASSOCIATE 07/24/24
--- OUTSIDE RECORDS SUMMARY | 2024-08-09 15:51 | XMS_ITS | Clinical Summary ---
Author Organization [facility] [place] Address [address] [address] [place] [address] Care Team Providers Care Dial Painter Name Role Phone Sona Tapia MD Primary Care Provider [phone] Allergies No known active allergies Medications irbesartan-hydro CHLOROthiazide (AVALIDE) 150-12.5 mg tablet Take 1 Tablet by mouth daily. Active DOXYCYCLINE MONOHYDRATE ORAL Take 100 mg by mouth daily. Active amLODIPine (NORVASC) 5 mg tablet Take 5 mg by mouth daily. Active mirabegron (MYRBETRIQ) 25 mg Extended Release 24 hour tablet Take 25 mg by mouth daily. Active esomeprazole (NexIUM) 20 mg Capsule, Delayed Release(E.C.) Take 40 mg by mouth daily before breakfast. Active calcium citrate-vitamin d3 (CITRACAL D MAX) 315 mg-6.25 mcg (250 unit) Tablet Take 1 Tablet by mouth daily. Active donepeziL (ARICEPT) 10 mg tabletIndication s:Mild cognitive impairment with memory loss TAKE 1 TABLET(10 MG) BY MOUTH DAILY AT BEDTIME 30 Tablet 2 3 Active nystatin (MYCOSTATIN) 100,000 unit/gram Cream Apply to affected area 2 times daily. Active memantine (NAMENDA) 10 mg TabletIndication s:Mild cognitive impairment with memory loss TAKE 1 TABLET(10 MG) BY MOUTH TWICE DAILY 60 Tablet 2 4 Active Active Problems Problem Noted Date Diagnosed Date Stenosis of left carotid artery 06/30/2023 Allergy 03/15/2023 Back pain 03/15/2023 Gastroesophageal reflux disease 03/15/2023 Hearing loss 03/15/2023 History of vasectomy 03/15/2023 Mild cognitive impairment with memory loss 03/15 Other psoriasis 03/15/2023 Unspecified hearing loss, bilateral 03/15/2023 Benign hypertension 03/15/2023 Prostate cancer 03/15/2023 Numbness and tingling 03/15/2023 Sadness 03/15/2023 Encounters Date Type Department Care Team Description 07/26/2024 [facility] Neurology [address], [address] [place] [phone] Anthony Durán MD Mild cognitive impairment with memory loss 07/19/2024 External Device Data [facility] ABSTRACTION Provider, Abstract 07/18/2024 External Device Data [place]STRACTION Provider, Abstract 07/17/2024 External Device Data [place]STRACTION Provider, Abstract 07/11/2024 External Device Data [place]STRA[place] Provider, Abstract 05/15/2024 External Device Data [place]STRACTION Provider, Abstract from Last 3 Months Family History Medical History Relation Name Comments Cancer Father Throat Cancer Father Alzheimer's Disease Mother Leukemia Sister Relation Name Status Comments Father Maternal Grandfather Maternal Grandmother Mother Paternal Grandfather Paternal Grandmother Sister Social History Tobacco Use Types Packs/Day Years Used Date Smoking Tobacco: Former Cigarettes 1 20 Smokeless Tobacco: Never Tobacco Cessation:Counseling Given: Not Answered Alcohol Use Standard Drinks/Week Comments Yes 0 (1 standard drink = 0.6 oz pur e alcohol) Sex and Gender Information Value Date Recorded Sex Assigned at Not on file Legal Sex Male 11:02 PM CDT Gender Identity Not on file Sexual Orientation Not on file Last Filed Vital Signs Vital Sign Reading Time Taken Comments Blood Pressure 112/68 06/30/2023 10:32 AM 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 Pulse 73 06/30/2023 10:32 AM 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 ATTORNEY Temperature - - Respiratory Rate - - Oxygen Saturation 97% 06/30/2023 10:32 AM 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 ATTORNEY Inhaled Oxygen Concentration - - Weight 83.9 kg (185 lb) 06/30/2023 10:32 AM 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 ATTORNEY Height 177.8 cm (5' 10 ) 06/30/2023 10:32 AM 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 ATTORNEY Body Mass Index 26.54 06/30/2023 10:32 AM 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 ATTORNEY Plan of Treatment Health Maintenance Due Date Last Done Comments PNEUMOCOCCAL VACCINE 65+ YEA RS (1 of 1 - PCV) 1997 RSV VACCINE (60+ or ) (1 - 1-dose 75+ series) 2022 INFLUENZA VACCINE (#1) 2024 3, 03/15/2022, 03/21/2021, Additional history exists Preventative Visit- Commercial 06/27/2024 DTAP/TDAP/TD VACCINES (3 - T d or Tdap) 04/05/2032 04/05/2022, 03/12/2020, 06/27/2003 ZOSTER VACCINE Completed 04/07/2021, 02/03/2021 Insurance [facility] [employer] MEDICARE PART A AND B Care Teams Dial Painter Relationship Specialty Start Date End Date Sona Tapia MD PCP - General Family Practice 03/15/23
--- OUTSIDE RECORDS SUMMARY | 2024-08-09 15:51 | XMS_ITS | Referral Summary ---
Author Organization [email or web address] Address [address] [place] [address] Care Team Providers Care Hat Finisher Name Role Phone Sona Tapia MD Primary Care Provider + Source Comments [email or web address],non-owned Affiliates and Associated Physician Practices is amultiple site organization consisting of ambulatory clinics and hospital sitesin [place], [place], [place] and [place]. This disclosure is being madepursuant to the Care Everywhere program and may not contain all information available regarding this patient. Last updated 18.[email or web address] Allergies No known active allergies Medications * Be aware that medications may not be up to date on this document. Alwaysverify current medications with the patient. Medication Sig Dispensed Refills Start Date End Date Status doxycycline monohydrate 50 MG TK 1 T PO QD 4 03/10/2018 Active Vitamin D, Cholecalciferol, 400 UNITS Active tamsulosin (FLOMAX) 0.4 MG capsule 0.4 mg Active famotidine (PEPCID) 20 MG tablet Take 20 mg by mouth Active Social History Tobacco Use Types Packs/Day Years Used Date Smoking Tobacco: Former Cigarettes 1 30 Smokeless Tobacco: Never Alcohol Use Standard Drinks/Week Comments Yes 0 (1 standard drink = 0.6 oz pur e alcohol) Moderation Sex and Gender Information Value Date Recorded Sex Assigned at Not on file Gender Identity Not on file Sexual Orientation Not on file Plan of Treatment Not on file Care Teams Hat Finisher Relationship Specialty Start Date End Date Sona Tapia MD [address] [place] [address] PCP - General 04/05/18
--- OUTSIDE RECORDS SUMMARY | 2024-08-09 15:51 | XMS_ITS | Patient Health Summary ---
Author Organization [facility] Address [address] [place] [address] Care Team Providers Care Water Service Supervisor Name Role Phone Sona Tapia MD Primary Care Provider + Note from [facility],non-owned Affiliates and Associated Physician Practices is amultiple site organization consisting of ambulatory clinics and hospital sitesin [place], [place], [place] and [place]. This disclosure is being madepursuant to the Care Everywhere program and may not contain all information available regarding this patient. Last updated 18.[facility] Allergies No known active allergies Medications * Be aware that medications may not be up to date on this document. Alwaysverify current medications with the patient. * doxycycline monohydrate 50 MG(Started 03/10/2018) TK 1 T PO QD 4 refills left * Vitamin D, Cholecalciferol, 400 UNITS * tamsulosin (FLOMAX) 0.4 MG capsule 0.4 mg * famotidine (PEPCID) 20 MG tablet Take 20 mg by mouth Social History Tobacco Use Types Packs/Day Years Used Date Smoking Tobacco: Former Cigarettes 1 30 Smokeless Tobacco: Never Alcohol Use Standard Drinks/Week Comments Yes 0 (1 standard drink = 0.6 oz pur e alcohol) Moderation Sex and Gender Information Value Date Recorded Sex Assigned at Not on file Gender Identity Not on file Sexual Orientation Not on file Procedures * DERMATOPATHOLOGY(Performed 02/19/2021) * CT ANGIO BRAIN NECK STROKE(Performed 05/06/2018) Performed for Diplopia, Nystagmus, Cerebrovascular accident (CVA), unspecified mechanism (HCC) Results * DERMATOPATHOLOGY (02/19/2021 12:00 AM CDT) Case Report Dermatopathology Report Case: [id number] Authorizing Provider: Susi Romero, Collected: 02/19/2021 12:00 AM 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 The specimen consists of a shave biopsy measuring 6x6x3 mm. Jar 0. 3:59 PM CDT DERMATOPATHOLOGY LABORATORY Microscopic Description Specimen A. SKIN, left cheek: Sections show papillomatosis. Some of the cells within the granular layer show coarsened keratohyalin granules. Within the dermis, dilated vessels and a patchy lymphocytic infiltrate are present. 3:59 PM CDT DERMATOPATHOLOGY LABORATORY Disclaimer An external and internal positive and negative controls are appropriate for the histochemical, immunohistochemical and immunofluorescence stain(s) in this case (if any), except where stated explicitly. The performance characteristics of the stain(s) cited in this report were developed and its performance characteristic determined by the Dermatopathology Laboratory at [facility], directed by Dr. Teo Tiwari. These tests need not be, and therefore are not, approved by the [place] Food and Drug Administration. The tests are used for clinical purposes. Billing Codes Specimen Charges Stain Charges 95541 1 3:59 PM CDT DERMATOPATHOLOGY LABORATORY Embedded Images 3:59 PM CDT DERMATOPATHOLOGY LABORATORY Pathology/Cytolog y TISSUE SPECIMEN FROM SKIN / Unknown 02/19/2021 02/20/2021 12:15 PM CDT Susi Romero DEDICATED LOCAL TRUCK DRIVER-SPECIAL DELIVERY WORKER LAB - PATH OLOGY/CYTOLOGY ORDERABLES DERMATOPATHOLOGY LABORATORY [facility] - Department of Dermatology [address], [address] [phone] * CT ANGIO BRAIN NECK STROKE (05/06/2018 12:25 PM ENTRY LEVEL ACCOUNT MANAGER) Anatomical Region Laterality Modality Head Computed Tomogra phy 05/06/2018 10:4 1 AM ENTRY LEVEL ACCOUNT MANAGER Impressions 05/07/2018 6:32 PM ENTRY LEVEL ACCOUNT MANAGER IMPRESSION: 1.Evaluation of the posterior fossa is limited on CT. There is however small foci of hypoattenuation centered in the андрей as outlined. Findings may represent age-indeterminate infarcts or can be artifactual. MRI of the brain is recommended for further evaluation. 2.No large arterial occlusions or significant stenoses identified in the head or neck. 3.A 1.4 x 1.2 cm right thyroid nodule is incidentally noted. A nonemergent thyroid ultrasound can be obtained for further evaluation if clinically warranted. Dictated by Carola Schaefer M.D. (associate professor of radiology). This report was approved by Carola Schaefer M.D. on 05/07/2018 6:32 PM . I, Dr. JARON HAMMER have personally reviewed and interpreted this examination/study. This report was electronically signed by JARON HAMMER on 05/07/2018 6:32 PM . Narrative 05/07/2018 6:32 PM ENTRY LEVEL ACCOUNT MANAGER EXAMINATION: 1. Computed tomographic (CT) angiography of the head without and with contrast 2. CT angiography of the neck with contrast HISTORY: Brainstem stroke TECHNIQUE: CT of the head was performed without contrast according to standard protocol. Then CT angiography of the head and neck was obtained after the uneventful administration of 75 mL Isovue 370 intravenous contrast. Three dimensional postprocessing was performed by the technologist and sent to the workstation for review. COMPARISON: No prior study is available for comparison at the time of this dictation. FINDINGS: Non-angiographic findings: No acute intra- or extra-axial fluid collections are identified. Evaluation of the posterior fossa is limited on CT. There is however small foci of hypoattenuation centered at the андрей, (series 7, image 11 and 12), and series 13, images 41 and 42). Findings may represent age-indeterminate infarcts or can be artifactual. There is mild cerebral volume loss with associated ex vacuo ventricular dilatation. The basilar cisterns are patent. No mass effect or midline shift is seen. The wilson-white matter differentiation is normal. There is a mucous retention cyst in the left maxillary sinus. There is retained secretions in the right maxillary sinus. There is mild mucosal thickening in the ethmoid air cells. The imaged portions of the orbits and mastoids appear normal. No acute fracture is identified. There is a 1.4 x 1.2 cm hypodense right thyroid lobe nodule associated with small peripheral calcification. There is mild thyromegaly. Dependent atelectasis changes are noted in both lung. There is moderate degenerative changes of the cervical spine. Angiographic findings: The visible aortic arch appears normal. The configuration of the brachiocephalic vessels is typical. The innominate artery and both subclavian arteries appear normal. The right common and internal carotid arteries as well as the right carotid bifurcation appear normal. The left common and internal carotid arteries as well as the left carotid bifurcation appear normal. The cervical vertebral arteries appear normal. The distal internal carotid arteries appear normal. The anterior and middle cerebral arteries appear normal. The distal vertebral arteries appear normal. The basilar artery is tortuous. The posterior cerebral arteries appear normal with origin of the right posterior cerebral artery. No aneurysms, vascular occlusions, or intracranial stenoses are identified. Procedure Note Jaron Hammer MD - 05/07/2018 EXAMINATION: 1. Computed tomographic (CT) angiography of the head without and with contrast 2. CT angiography of the neck with contrast HISTORY: Brainstem stroke TECHNIQUE: CT of the head was performed without contrast according to standard protocol. Then CT angiography of the head and neck was obtained after the uneventful administration of 75 mL Isovue 370 intravenous contrast. Three dimensional postprocessing was performed by the technologist and sent to the workstation for review. COMPARISON: No prior study is available for comparison at the time ofthis dictation. FINDINGS: Non-angiographic findings: No acute intra- or extra-axial fluid collections are identified. Evaluation of the posterior fossa is limited on CT. There is howeversmall foci of hypoattenuation centered at the андрей, (series 7, image 11 and12), and series 13, images 41 and 42). Findings may representage-indeterminate infarcts or can be artifactual. There is mild cerebral volume loss with associated ex vacuo ventricular dilatation. The basilar cisterns are patent. No mass effect or midline shift is seen. The wilson-white matter differentiation is normal. There is a mucous retention cyst in the left maxillary sinus. There is retained secretions in the right maxillary sinus. There is mild mucosal thickening in the ethmoid air cells. The imaged portions of the orbits and mastoids appear normal. No acute fracture is identified. There is a 1.4 x 1.2 cm hypodense right thyroid lobe nodule associated with small peripheral calcification. There is mild thyromegaly.Dependent atelectasis changes are noted in both lung. There is moderatedegenerative changes of the cervical spine. Angiographic findings: The visible aortic arch appears normal. The configuration of the brachiocephalic vessels is typical. The innominate artery and both subclavian arteries appear normal. The right common and internal carotid arteries as well as the right carotid bifurcation appear normal. Theleft common and internal carotid arteries as well as the left carotid bifurcation appear normal. The cervical vertebral arteries appearnormal. The distal internal carotid arteries appear normal. The anterior and middle cerebral arteries appear normal. The distal vertebral arteries appear normal. The basilar artery is tortuous. The posterior cerebral arteries appear normal with origin of the right posterior cerebral artery. No aneurysms, vascular occlusions, or intracranial stenoses are identified. IMPRESSION: 1.Evaluation of the posterior fossa is limited on CT. There is however small foci of hypoattenuation centered in the андрей as outlined. Findings may represent age-indeterminate infarcts or can be artifactual. MRI ofthe brain is recommended for further evaluation. 2.No large arterial occlusions or significant stenoses identified in the head or neck. 3.A 1.4 x 1.2 cm right thyroid nodule is incidentally noted. Anonemergent thyroid ultrasound can be obtained for further evaluation if clinically warranted. Dictated by Carola Schaefer M.D. (associate professor of radiology). This report was approved by Carola Schaefer M.D. on 05/07/2018 6:32 PM . I, Dr. JARON HAMMER have personally reviewed and interpreted this examination/study. This report was electronically signed by JARON HAMMER on 05/07/2018 6:32 PM . Sona Castaneda MD CT ORDERABLES Care Teams Water Service Supervisor Relationship Specialty Start Date End Date Sona Tapia MD [address] [place] [address] PCP - General 04/05/18
--- OUTSIDE RECORDS SUMMARY | 2024-08-09 15:51 | XMS_ITS | Clinical Summary ---
Author Organization [facility] Address [address] [place] [address] Care Team Providers Care Icu Clerk Name Role Phone Sona Tapia MD Primary Care Provider + Source Comments [facility],non-owned Affiliates and Associated Physician Practices is amultiple site organization consisting of ambulatory clinics and hospital sitesin [place], [place], [place] and [place]. This disclosure is being madepursuant to the Care Everywhere program and may not contain all information available regarding this patient. Last updated 18.[facility] Allergies No known active allergies Medications * [...] tablet Take 20 mg by mouth Active Family History Medical History Relation Name Comments Cancer - Other Brother Cancer - Other Father Alzheimer's Disease Mother Relation Name Status Comments Brother Father Mother Social History Tobacco Use Types Packs/Day Years Used Date Smoking Tobacco: Former Cigarettes 1 30 Smokeless Tobacco: Never Alcohol Use Standard Drinks/Week Comments Yes 0 (1 standard drink = 0.6 oz pur e alcohol) Moderation Sex and Gender Information Value Date Recorded Sex Assigned at Not on file Gender Identity Not on file Sexual Orientation Not on file Plan of Treatment Health Maintenance Due Date Last Done Comments MEDICARE AWV 12 MONTHS 1945 HEPATITIS C SCREENING 05/28/1965 DTAP/TDAP/TD VACCINES (1 - Tdap) 1966 PNEUMOCOCCAL VACCINE 50+ (1 of 1 - PCV) 1997 ZOSTER VACCINE (1 of 2) 1997 Respiratory Syncytial Virus (RSV) Vaccine Pt: or over 60 yrs (1 - 1-dose 75+ series) 2022 COVID-19 VACCINE (1 - 2023-2 5 season) 2024 INFLUENZA VACCINE (#1) 2024 DEPRESSION SCREENING 06/27/2024 HEPATITIS B VACCINE Aged Out No longe r eligible based on patient's age to complete this topic HIB VACCINE Aged Out No longer eligi ble based on patient's age to complete this topic HPV VACCINE Aged Out No longer eligi ble based on patient's age to complete this topic MENINGOCOCCAL (Group B) VACCINE Aged Out No longer eligible based on patient's age to complete this topic MENINGOCOCCAL VACCINE Aged Out No ramya keyonna eligible based on patient's age to complete this topic Care Teams Icu Clerk Relationship Specialty Start Date End Date Sona Tapia MD [address] [place] [address] [facility] - General 04/05/18
--- OUTSIDE RECORDS SUMMARY | 2024-08-09 15:51 | XMS_ITS | Continuity of Care Document ---
Author Organization [facility] Address [address] [place] [address] Phone Care Team Providers Care First Aid Trainer Name Role Phone Mustapha Varner PA-C Unavailable Unavailab le Allergies, Adverse Reactions, Alerts Substance Reaction Status Criticality No Known Allergies Active No Inform ation Medications Medication Instructions Dosage Effective Dates (start - stop) Status Comments Nasacort AQ 55 mcg nasal spray aerosol spray 1 spray by intranasal route every day in each nostril - Active Voltaren 1 % topical gel apply (2G) by topical route 4 times every day to the affected area(s) - Active ZYRTEC (unknown strength) take 1 tablet by oral route every day Not Available - Active VITAMIN D3 (unknown strength) Not Available - Active NEXIUM (unknown strength) Not Available - Active Procedures Procedure Date Postop followup visit Postop followup visit WHO, Wrist Extension Control Cock-up, No nmolded, P Physical Tx excercises each 15 min WHO, Wrist Extension Control Cock-up, No nmolded, P Dual Energy X-ray Absorptimetry (DXA) Bakari ne Density Occupational Therapy Evaluation Low Comp lexity Physical Tx excercises each 15 min Carry Current Status Carry Goal Status Carpal Tunnel Release Office/outpatient visit,est, mod 2016 Venpnctr fngr/heel/ear stick routne Office/outpatient visit,est, mod 2016 Office/outpatient visit,est, mod 2014 X-ray exam of thoracic spine 2 view X-ray exam of thoracic spine [address] Bone Density Office/outpatient visit,est, mod 2014 Knee Xray 3 Views Office/outpatient visit,est, mod 2013 Office/outpatient visit,est, mod 2013 MRI Upper Ext Any Joint WO Contrast MRI Upper Ext Any Joint WO Contrast Office/outpatient visit,new, mod 2013 Advance Directives Directive Yes / No Effective Date File Name No Information Encounters Encounter Description Practice Location Reason(s) For Visit Diagnoses Date Provider Providers Copied on Encounter [facility], [address] [place] [address], [id number], tel:[phone] SOA PA left carpal tunnel syndrome (chief complaint) Carpal tunnel syndrome, left upper limb Apr-0 5-201 7 Gardenia Luciano. [address] [place], [place], [id number] , [place]. tel:[phone] [facility], [address] [place] [address], [id number], tel:[phone] SOA PA hand (chief complaint) Carpal tunnel syndrome, left upper limbCarpal tunnel syndrome, right upper limb Mar-0 8-201 7 Gardenia Luciano. [address] [place], [place], [id number] , [place]. tel:[phone] [facility], [address] [place] [address], [id number], tel:[phone] SOA PA No Information Mar-0 8-201 7 Gardenia Luciano. [address] [place], [place], [id number] , [place]. tel:[phone] Referring Provider: Mustapha Howe, [address] [place], [address] . tel:[phone] [facility], [address] [place] [address], [id number], tel:[phone] [facility] Carpal tunnel syndrome, left upper limb Mar-0 7-201 7 Shahab Bermeo. [address] [place] [address], [id number] , . tel:[phone] Referring Provider: Regino Polo, [address] [place] [address], [id number] . tel:[phone] [facility], [address] [place] [address], [id number], tel:[phone] DELIO WALDRON No Information Mar-0 7-201 7 Gardenia Luciano. [address] [place] [address], [id number] , . tel:[phone] Referring Provider: Mustapha Howe, [address] [place], [address] . tel:[phone] [facility], [address] [place] [address], [id number], tel:[phone] [facility] No Information Mar-0 6-201 7 Gianni Lopez. [address] [place] [address], [id number] , . tel:[phone] Referring Provider: John Rojas, [address] [place] [address], [id number] . tel:[phone] [facility], [address] [place] [address], [id number], [place] tel:[phone] [facility] Carpal tunnel syndrome, left upper limb Feb-2 3-201 7 Shahab Bermeo. [address] [place] [address], [id number] , . tel:[phone] Referring Provider: Regnio Polo, [address] [place] [address], [id number] . tel:[phone] [facility], [address] [place] [address], [id number], tel:[phone] [facility] Carpal tunnel syndrome, left upper limb 7 Rodolfo Lacy. [address] [place], [place], [id number] , . tel:[phone] [facility], [address] [place] [address], [id number], tel:[phone] [facility] No Information 7 Rodolfo Lcay. [address] [place], [place], [id number] , [place]. tel:[phone] Office/outpa tient visit,est, mod [facility], [address] [place] [address], [id number], tel:[phone] SOA PA general orthopedic (chief complaint)Ost eoporosis (chief complaint) Disorder of bone, unspecifiedChr onic fatigue 7 Dequan Marrero. [address] [place], [place], [id number] , [place]. tel:[phone] [facility], [address] [place] [address], [id number], tel:[phone] [facility] No Information 7 Gianni Lopez. [address] [place] [address], [id number] , . [phone] Referring Provider: John Rojas, [address] [place] [address], [id number] . tel:[phone] Office/outpa tient visit,est, mod [facility], [address] [place] [address], [id number], tel:[phone] SOA PA bilateral carpal tunnel syndrome (chief complaint) Carpal tunnel syndrome of right wristCarpal tunnel syndrome of left wristCarpal tunnel syndrome of left wrist b 7 Gardenia Luciano. [address] [place] [address], [id number] , [place]. tel: [phone] Office/outpa tient visit,est, [facility], [address] [place] [address], [id number], tel:[phone] DELIO WALDRON general orthopedic (chief complaint) Osteopenia, Disorder Bone/Cartilage 5 Shayy Vaibhav. [address] [place] [address], [id number] , . tel:[phone] Referring Provider: Vaibhav Gordon, [address] [place] [address], [id number] . tel:[phone] Office/outpa tient visit,[facility], [facility], [address] [place] [address], [id number], tel:[phone] DELIO WALDRON Osteoporosis (chief complaint) FatigueBone disorder 5 Shayy Vaibhav. [address] [place] [address], [id number] , . tel:[phone] Office/outpa tient visit,est, [facility], [address] [place] [address], [id number], tel:[phone] [facility] knee (chief complaint) Pain In Lower Leg (Knee) / Patellofemoral SyndromeArthri tis Knee Localized Primary (osteoarthriti s) 4 Dixon Bledsoe. [address] [place] [address], [id number] , . tel:[phone] Referring Provider: Rakan Howe, [address] [place] [address], [id number] . tel:[phone] Office/outpa tient visit,[facility], [facility], [address] [place] [address], [id number], tel:[phone] [facility] elbow (chief complaint) Arthritis Elbow, Localized Primary (Osteoarthriti s) 4 Dixon Bledsoe. [address] [place] [address], [id number] , . tel:[phone] [facility], [address] [place] [address], [id number], tel:[phone] [facility] Pain In Elbow Joint 4 Dixon Rakan. [address] [place] [address], [id number] , . tel:[phone] Referring Provider: Rakan Howe, [address] [place] [address], [id number] . tel:[phone] [facility], [address] [place] [address], [id number], tel:[phone] [facility] No Information 4 Dixon Bledsoe. [address] [place] [address], [id number] , . tel:[phone] Referring Provider: Rakan Howe, [address] [place] [address], [id number] . tel:[phone] Office/outpa tient visit,[facility], [facility], [address] [place] [address], [id number], tel:[phone] [facility] elbow (chief complaint) Pain In Elbow JointBilling Review 4 Dixon Bledsoe. [address] [place] [address], [id number] , . tel:[phone] Family History Family Member Type Diagnosis Age At Onset Problem (finding) Family history of alzhe cipriano's disease Problem (finding) Family history of Cance r, unknown Immunizations Vaccine Date Status Comments Flu (split) (3 yrs or older) administered Source: Other Provider Pneumo (2 yrs or older)(PPV) administered Source: Other Provider Payers Payer name Insurance type Covered constitution party ID Authoriza tion(s) [place] [id number] [facility] ([facility]) [id number] [facility] [id number] Social History Type Description Quantity Date Captured Comments Alcohol Use Details Unknown Caffeine Use Details Unknown Tobacco Use Status Never smoked tobacco 2016 Smoking Status Never smoker Non-Smoking Tobacco Use Details : No Details Available : No Details Available Sex Male Vital Signs Date / Time: Height Weight BMI Pulse Rate Blood Pressure Temperature Respiratory Rate Body Surface Area Head Circumference Head Circ. Percentile Wt./Louie. Percentile BMI percentile Pulse Ox Inhaled Ox 8:21 AM 69.50 in 81.647 kg (180.00 lbs) 26.2 0 kg/m eter (2) 71 /min 129/82 mm[Hg] 2.00 meter(2) Chief Complaint And Reason For Visit From encounter dated '09/29/2016 08:00'. left carpal tunnel syndrome (chief complaint) Reason For Referral Reason For Referral No Information Plan Of Treatment Date Type Action Status Referral Ordered: MRI Upper Ext Any Joint WO Contrast RT elbow Appointment date/timeframe: 01/15/2014 ordered Future Order: Lab Order CMP ([id number]), Ordered on: Ordered Future Order: Lab Order PTH, Int act ([id number]), Ordered on: Ordered Future Order: Lab Order TSH ([id number]), Ordered on: Ordered Future Order: Lab Order Vitamin D, 25-Hydroxy ([id number]), Ordered on: Ordered Future Order: Lab Order Phosphor us ([id number]), Ordered on: Ordered Future Order: Lab Order CBC ([id number]), Ordered on: Ordered Future Order: Radiology Order Bakari ne Density DXA 1 Or More Sites Axial Skeleton ([id number]), Ordered on: Ordered Future Order: Radiology Order CT Bone Density ([id number]), Ordered on: Ordered Future Order: Radiology Order Sp ine Xray Thoracic 2 Views ([id number]), Ordered on: Ordered Future Order: Lab Order BASIC ME TABOLIC PANEL (BMP), Ordered on: Ordered Future Order: Lab Order TSH (TSH), Ordere d on: Ordered Future Order: Lab Order PTH RELA NABEEL PEPTIDE (PTHRP), Ordered on: Ordered Future Order: Lab Order VITAMIN D 25-HYDROXY (VITD), Ordered on: Ordered Future Order: Radiology Order Kn ee Xray Complete 4 Or More Views ([id number]), Ordered on: Ordered Future Order: Radiology Order Kn ee Xray 3 Views ([id number]), Ordered on: Ordered History Of Present Illness Encounter Date Complaint History Of Prese nt Illness left carpal tunnel syndrome hand Osteoporosis Onset: on 2016. Severity level with respect to fracture risk is mild. Indications for testing include age > 65, male. Relevant history includes calcium intake (diet), exercise, family history of osteoporosis, soda/coffee intake greater than 2/day and vitamin D intake (1000IU). Relevant history does not include alcohol intake greater than 2/day, anticonvulsants, family history of hip fracture, smoking or thyroid replacement. Associated symptoms include GERD-Nexium. Pertinent negatives include eating disorder, height loss and non-traumatic fracture. Additional information: Drinks 6 cups of coffee daily. Mother- hx of OP. general orthopedic Manuel Khan i s a 71 year old male. [facility]. He had previous CT bone density 2 years ago. bilateral carpal tunnel syndrome general orthopedic Manuel Khan i s a 69 year old male. Manuel is being seen in the orthopedic clinic for knee complaints. He was referred by Dr. Metcalf to the osteoporosis clinic. He does take Nexium which can decrease his absorption of calcium is a smoker and smoked for 20 years he has history for low testosterone he drinks more than 2 alcoholic beverages per day as well as consumes caffeine he does not exercise regularly there is family medical history for osteoporosis Osteoporosis knee elbow elbow Functional Status Date Functional Assessmen t No Information Instructions Date Instruction Additional Infor mation Reviewed bone densit y health questionnaire with patient. Discussed with patient results of bone density study of normal bone density. Lab order given for CBC, phosphorus, free and total testosterone, CMP, TSH, Vit D, and intact PTH. Will call patient with lab results once reviewed. Instructed patient on Calcium 1200 mg and Vitamin D 1000 IU intake daily. Osteoporosis information packet given to patient with fall precautions discussed. Repeat bone density study in 2 years unless change in medical history in meantime. Call if any concerns in the meantime. Related to Disorder of bone, unspecified Findings were discus sed with patient he has multiple risk factors for osteoporosis caffeine alcohol consumption use of Nexium, low testosterone, decreased level of activity. We'll proceed with evaluation labs x-rays CT we'll see the patient back to discuss the results if he has any questions concerns of interval he was asked call Related to Osteopenia, Disorder Bone/Cartilage Patient was educated on the diagnosis and treatment plan. Related to Osteopenia, Disorder Bone/Cartilage Patient was educated on the diagnosis and treatment plan. Related to Bone disorder Ordering Bone Density/labs Relat ed to Bone disorder Patient was educated on the diagnosis and treatment plan. Related to Pain In Lower Leg (Knee) / Patellofemoral Syndrome activities as trinh you, one time therapy appt,nap 500mg,call for questions Related to Pain In Lower Leg (Knee) / Patellofemoral Syndrome activities as trinh you, rtc on an as needed basis,call for questions Related to Arthritis Elbow, Localized Primary (Osteoarthritis) activities as trinh you, rtc after mri approval,call for questions Related to Pain In Elbow Joint Assessments Type Assessment Date assessment Carpal tunnel syndrome, left upp er limb Patient Care Teams Name Effective Dates (start - stop) Status Members No Information
== END 2024-08-09 15:45 | disposition home or self-care (01) ==
PROVIDERS: PCP Family Medicine; Visit Provider Internal Medicine Interventional Cardiology
DX: H92.10 Otorrhea, unspecified ear (principal); H92.03 Otalgia, bilateral; J30.2 Other seasonal allergic rhinitis
CPT/HCPCS: 70480

== ENCOUNTER 2024-09-04 12:46 | Outpatient (CLI) | payer MEDICARE, BC, OTHER, SELFPAY ==
--- NOTE | 2024-09-04 | ECG_ITS ---
Test Date: 2024-09-04 13:29:59 Measurements Intervals [place] Rate: 78 P: 43 GA: 177 QRS: 3 QRSD: 96 T: 80 QT: 375 QTc: 428 Interpretive Statements SINUS RHYTHM NONSPECIFIC T-WAVE ABNORMALITY Compared to ECG 02/20/2024 15:00:13 No significant changes Electronically Signed On 09-04-2024 15:06:15 CDT by Cornell Davila M.D.
--- OUTSIDE RECORDS SUMMARY | 2024-09-04 14:00 | XMS_ITS | Patient Health Summary ---
Author Organization [facility] Address [address] [place] [address] Care Team Providers Care Die Cutting Machine Operator Name Role Phone Sona Tapia MD Primary Care Provider + Note from [facility],non-owned Affiliates and Associated Physician Practices is amultiple site organization consisting of ambulatory clinics and hospital sitesin [place], [place], [place] and [place]. This disclosure is being madepursuant to the Care Everywhere program and may not contain all information available regarding this patient. Last updated 18.[facility] Allergies No known active allergies Medications * [...] AM CDT) Case Report Dermatopathology Report Case: [id number] Authorizing Provider: Susi Romero, Collected: 02/19/2021 12:00 AM FRUIT ROOM HAND-ARTILLERY METEOROLOGICAL MAN Ordering Location: [facility] Received: 02/20/2021 12:15 PM Pathologist: Fern Maynard MD Specimen: Skin, left cheek 3:59 [...] characteristic determined by the Dermatopathology Laboratory at [facility], directed by Dr. Teo Tiwari. These tests need not be, and therefore are not, approved by the [place] Food and Drug Administration. The tests are used for clinical purposes. Billing Codes Specimen Charges Stain Charges 90694 1 3:59 PM CDT DERMATOPATHOLOGY LABORATORY Embedded Images 3:59 PM CDT DERMATOPATHOLOGY LABORATORY Pathology/Cytolog y TISSUE SPECIMEN FROM SKIN / Unknown 02/19/2021 02/20/2021 12:15 PM CDT Susi Romero FRUIT ROOM HAND-ARTILLERY METEOROLOGICAL MAN LAB - PATH OLOGY/CYTOLOGY ORDERABLES DERMATOPATHOLOGY LABORATORY [facility] - Department of Dermatology [address], [address] [phone] * CT ANGIO BRAIN NECK STROKE (05/06/2018 12:25 PM MANAGER PROPOSAL) Anatomical Region Laterality Modality Head Computed Tomogra phy 05/06/2018 10:4 1 AM MANAGER PROPOSAL Impressions 05/07/2018 6:32 PM MANAGER PROPOSAL IMPRESSION: 1.Evaluation of the posterior fossa is [...] clinically warranted. Dictated by Carola Schaefer M.D. (radiology transcriptionist). This report was approved by Carola Schaefer M.D. on 05/07/2018 6:32 PM . I, Dr. JARON HAMMER have personally reviewed and interpreted this examination/study. This report was electronically signed by JARON HAMMER on 05/07/2018 6:32 PM . Narrative 05/07/2018 6:32 PM MANAGER PROPOSAL EXAMINATION: 1. Computed tomographic (CT) angiography of [...] clinically warranted. Dictated by Carola Schaefer M.D. (radiology transcriptionist). This report was approved by Carola Schaefer M.D. on 05/07/2018 6:32 PM . I, Dr. JARON HAMMER have personally reviewed and interpreted this examination/study. This report was electronically signed by JARON HAMMER on 05/07/2018 6:32 PM . Sona Castaneda MD CT ORDERABLES Care Teams Die Cutting Machine Operator Relationship Specialty Start Date End Date Sona Tapia MD [address] [place] [address] PCP - General 04/05/18
--- OUTSIDE RECORDS SUMMARY | 2024-09-04 14:00 | XMS_ITS | Referral Summary ---
Author Organization [facility] Address [address] [place] [address] Care Team Providers Care Lubricating Specialist Name Role Phone Sona Tapia MD Primary Care Provider + Source Comments [facility],non-owned Affiliates and Associated Physician Practices is amultiple site organization consisting of ambulatory clinics and hospital sitesin [place], [place], [place] and [place]. This disclosure is being madepursuant to the Care Everywhere program and may not contain all information available regarding this patient. Last updated 18.[facility] Allergies No known active allergies Medications [...] of Treatment Not on file Care Teams Lubricating Specialist Relationship Specialty Start Date End Date Sona Tapia MD [address] [place] [address] PCP - General 04/05/18
--- OUTSIDE RECORDS SUMMARY | 2024-09-04 14:00 | XMS_ITS | Clinical Summary ---
Author Organization [facility] Address [facility] [place] [address] Care Team Providers Care In Home Sales Consultant Name Role Phone Oliva Andrade Primary Care Provider [phone] Medications esomeprazole (NEXIUM) 40 MG capsule Take 1 capsule (40 mg total) by mouth daily. 05/01/2024 Active amLODIPine (NORVASC) 5 MG tablet Take 1 tablet (5 mg total) by mouth every evening. Active MYRBETRIQ 25 MG 24 hr tablet Take 1 tablet (25 mg total) by mouth daily. Active irbesartan (AVAPRO) 75 MG tablet Take 1 tablet (75 mg total) by mouth daily. 07/03/2024 Active memantine (NAMENDA) 10 MG tabletIndicatio ns:Mild cognitive impairment Take 1 tablet (10 mg total) by mouth 2 (two) times daily. 180 tablet 3 07/24/2024 Active donepezil (ARICEPT) 5 MG TabIndications: Mild cognitive impairment Take 1 tablet (5 mg total) by mouth nightly at bedtime. 90 tablet 3 07/24/2024 6 Active Encounters Date Type Department Care Team Description 07/24/2024 11:00 AM SUPERINTENDENT PIPELINES Office Visit [facility] - [address], [address] [place] [id number] Isadora Lovell MD New Patient 07/24/2024 Travel [...] Comments Blood Pressure 120/79 07/24/2024 10:48 AM SUPERINTENDENT PIPELINES Pulse 69 07/24/2024 10:48 AM SUPERINTENDENT PIPELINES Temperature - - Respiratory Rate - - Oxygen Saturation 95% 07/24/2024 10:48 AM SUPERINTENDENT PIPELINES Inhaled Oxygen Concentration - - Weight 82.6 kg (182 lb) 07/24/2024 10:48 AM SUPERINTENDENT PIPELINES Height - - Body Mass Index - - Plan of Treatment Upcoming Encounters Date Type Department Care Team (Late st Contact Info) Description 01/21/2025 9:20 AM CDT Office Visit [facility] - [address], [address] [place] [address] Isadora Lovell MD [address] [place] [address] Health Maintenance Due Date Last Done Comments [...] , 03/20/2023, Additional history exists PHQ-2 (Physician [place]) Completed 07/24/2024 Meningococcal B Vaccine Aged Out No l onger eligible based on patient's age to complete this topic Meningococcal Vaccine Aged Out No ramya keyonna eligible based on patient's age to complete this topic RSV Immunizations Under 20 Months Aged Out No longer eligible based on patient's age to complete this topic Insurance MEDICARE [facility] [employer] [facility] Care Teams In Home Sales Consultant Relationship Specialty Start Date End Date Oliva Andrade PA [address], [address] [place] [address] PCP - General PHYSICIAN RISK AND INSURANCE CONSULTANT 07/24/24
--- OUTSIDE RECORDS SUMMARY | 2024-09-04 14:00 | XMS_ITS | Clinical Summary ---
Author Organization [email or web address] Address [address] [facility] [place] [address] Care Team Providers Care Block Cutter Name Role Phone Sona Tapia MD Primary Care Provider + Source Comments [email or web address],non-owned Affiliates and Associated Physician Practices is amultiple site organization consisting of ambulatory clinics and hospital sitesin [place], [place], [place] and [place]. This disclosure is being madepursuant to the Care Everywhere program and may not contain all information available regarding this patient. Last updated 18.[email or web address] Allergies No known active allergies Medications * [...] age to complete this topic Care Teams Block Cutter Relationship Specialty Start Date End Date Sona Tapia MD [address] [place] [address] [facility] - General 04/05/18
--- OUTSIDE RECORDS SUMMARY | 2024-09-04 14:00 | XMS_ITS | Clinical Summary ---
Author Organization [facility] [place] Address [address] [address] [place] [address] Care Team Providers Care Lease Administration Analyst Name Role Phone Sona Tapia MD Primary Care Provider [phone] Allergies No known active allergies Medications irbesartan-hydro [...] Encounters Date Type Department Care Team Description 08/14/2024 External Device Data ST[facility] ABSTRACTION Provider, Abstract 07/26/2024 [facility] Neurology [address], [address] [place] [address] Anthony Durán MD Mild cognitive impairment with [...] Comments Blood Pressure 112/68 06/30/2023 10:32 AM OFFICE MOVER Pulse 73 06/30/2023 10:32 AM OFFICE MOVER Temperature - - Respiratory Rate - - Oxygen Saturation 97% 06/30/2023 10:32 AM OFFICE MOVER Inhaled Oxygen Concentration - - Weight 83.9 kg (185 lb) 06/30/2023 10:32 AM OFFICE MOVER Height 177.8 cm (5' 10 ) 06/30/2023 10:32 AM OFFICE MOVER Body Mass Index 26.54 06/30/2023 10:32 AM OFFICE MOVER Plan of Treatment Health Maintenance Due Date Last Done Comments PNEUMOCOCCAL VACCINE 50+ YEA RS (1 of 1 - PCV) 1997 RSV VACCINE (60+ or ) (1 - 1-dose 75+ series) 2022 INFLUENZA VACCINE (#1) 2024 3, 03/15/2022, 03/21/2021, Additional history exists Preventative Visit- Commercial 06/27/2024 DTAP/TDAP/TD VACCINES (3 - T d or Tdap) 04/05/2032 04/05/2022, 03/12/2020, 06/27/2003 ZOSTER VACCINE Completed 04/07/2021, 02/03/2021 Insurance [facility] [employer] MEDICARE PART A AND B Care Teams Lease Administration Analyst Relationship Specialty Start Date End Date Sona Tapia MD PCP - General Family Practice 03/15/23
--- OUTSIDE RECORDS SUMMARY | 2024-09-04 14:00 | XMS_ITS | Clinical Summary ---
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 Gender Identity Not on file Sexual Orientation Not on file Plan of Treatment Health Maintenance Due Date Last Done Comments Hepatitis C Virus (HCV) Screening 1945 Pneumococcal Immunization (50+ years) (1 of 1 - PCV) 1997 Zoster Immunization (1 of 2) 1997 Respiratory Syncytial Virus (RSV) Immunization (Adult) (1 - 1-dose 75+ series) 2022 Influenza Immunization (#1) 02/26/202402/25, 03/30/2019, 04/01/2018, Additional history exists SARS-COV-2 Immunization ( season) 2024 DTaP/Tdap/Td Immunization Discontinued 03/12/2020 TdaP Immunization Completed 03/12/2020 Hepatitis B Immunization Aged Out No longer eligible based on patient's age to complete this topic Meningococcal Immunization (ACWY) Aged Out No longer eligible based on patient's age to complete this topic Rotavirus Immunization Aged Out No lo nger eligible based on patient's age to complete this topic
--- OUTSIDE RECORDS SUMMARY | 2024-09-04 14:00 | XMS_ITS | Continuity of Care Document ---
Author Organization [facility] Address [address] [place] [address] Phone Care Team Providers Care Social Media Coordinator Name Role Phone Mustapha Varner PA-C Unavailable [...] Diagnoses Date Provider Providers Copied on Encounter [facility], [address] [place] [address], [id number], tel:[phone] SOA PA left carpal tunnel syndrome (chief complaint) Carpal tunnel syndrome, left upper limb Apr-0 5-201 7 Gardenia Luciano. [address] [place], [place], [id number] , [place]. tel:[phone] [facility], [address] [place] [address], [id number], tel:[phone] SOA PA hand (chief complaint) Carpal tunnel syndrome, left upper limbCarpal tunnel syndrome, right upper limb Mar-0 8-201 7 Gardenia Luciano. [address] [place], [place], [id number] , [place]. tel:[phone] [facility], [address] [place] [address], [id number], tel:[phone] SOA PA No Information Mar-0 8-201 7 Gardenia Luciano. [address] [place], [place], [id number] , [place]. tel:[phone] Referring Provider: Mustapha Howe, [address] [place], [address] . tel:[phone] [facility], [address] [place] [address], [id number], tel:[phone] [facility] Carpal tunnel syndrome, left upper limb Mar-0 7-201 7 Shahab Bermeo. [address] [place] [address], [id number] , . tel:[phone] Referring Provider: Regino Polo, [address] [place] [address], [address] . tel:[phone] [facility], [address] [place] [address], [id number], tel:[phone] DELIO WALDRON No Information Mar-0 7-201 7 Gardenia Luciano. [address] [place] [address], [id number] , . tel:[phone] Referring Provider: Mustapha Howe, [address] [place], [address] . tel:[phone] [facility], [address] [place] [address], [id number], tel:[phone] [facility] No Information Mar-0 6-201 7 Gianni Lopez. [address] [place] [address], [id number] , . tel:[phone] Referring Provider: John Rojas, [address] [place] [address], [id number] . tel:[phone] [facility], [address] [place] [address], [id number], [place] tel:[phone] [facility] Carpal tunnel syndrome, left upper limb Feb-2 3-201 7 Shahab Bermeo. [address] [place] [address], [id number] , . tel:[phone] Referring Provider: Regino Polo, [address] [place] [address], [id number] . tel:[phone] [facility], [address] [place] [address], [id number], tel:[phone] [facility] Carpal tunnel syndrome, left upper limb 7 Rodolfo Lacy. [address] [place], [place], [id number] , . tel:[phone] [facility], [address] [place] [address], [id number], tel:[phone] [facility] No Information 7 Rodolfo Lacy. [address] [place], [place], [id number] , [place]. tel:[phone] Office/outpa tient visit,est, mod [facility], [address] [place] [address], [id number], tel:[phone] SOA PA general orthopedic (chief complaint)Ost eoporosis (chief complaint) Disorder of bone, unspecifiedChr onic fatigue 7 Dequan Marrero. [address] [place], [place], [id number] , [place]. tel:[phone] [facility], [address] [place] [address], [id number], tel:[phone] [facility] No Information 7 Gianni Lopez. [address] [place] [address], [id number] , . [phone] Referring Provider: John Rojas, [address] [place] [address], [id number] . tel:[phone] Office/outpa tient visit,est, mod [facility], [address] [place] [address], [id number], tel:[phone] SOA PA bilateral carpal tunnel syndrome (chief complaint) Carpal tunnel syndrome of right wristCarpal tunnel syndrome of left wristCarpal tunnel syndrome of left wrist b 7 Gardenia Luciano. [address] [place] [address], [id number] , [place]. tel: [phone] Office/outpa tient visit,est, [facility], [address] [place] [address], [id number], tel:[phone] DELIO WALDRON general orthopedic (chief complaint) Osteopenia, Disorder Bone/Cartilage 5 Shayy Vaibhav. [address] [place] [address], [id number] , . tel:[phone] Referring Provider: Vaibhav Gordon, [address] [place] [address], [id number] . tel:[phone] Office/outpa tient visit,[facility], [facility], [address] [place] [address], [id number], tel:[phone] DELIO WALDRON Osteoporosis (chief complaint) FatigueBone disorder 5 Shayy Vaibhav. [address] [place] [address], [id number] , . tel:[phone] Office/outpa tient visit,est, [facility], [address] [place] [address], [id number], tel:[phone] [facility] knee (chief complaint) Pain In Lower Leg (Knee) / Patellofemoral SyndromeArthri tis Knee Localized Primary (osteoarthriti s) 4 Dixon Bledsoe. [address] [place] [address], [id number] , . tel:[phone] Referring Provider: Rakan Howe, [address] [place] [address], [id number] . tel:[phone] Office/outpa tient visit,[facility], [facility], [address] [place] [address], [id number], tel:[phone] [facility] elbow (chief complaint) Arthritis Elbow, Localized Primary (Osteoarthriti s) 4 Dixon Bledsoe. [address] [place] [address], [id number] , . tel:[phone] [facility], [address] [place] [address], [id number], tel:[phone] [facility] Pain In Elbow Joint 4 Dixon Rakan. [address] [place] [address], [id number] , . tel:[phone] Referring Provider: Rakan Howe, [address] [place] [address], [id number] . tel:[phone] [facility], [address] [place] [address], [id number], tel:[phone] [employer] [facility] No Information 4 Dixon Bledsoe. [address] [place] [address], [id number] , . tel:[phone] Referring Provider: Rakan Howe, [address] [place] [address], [id number] . tel:[phone] Office/outpa tient visit,[facility], [facility], [address] [place] [address], [id number], tel:[phone] [facility] elbow (chief complaint) Pain In Elbow JointBilling Review 4 Dixon Bledsoe. [address] [place] [address], [id number] , . tel:[phone] Family History Family Member Type Diagnosis Age At Onset Problem (finding) Family history of alzhe cipriano's disease Problem (finding) Family history of Cance r, unknown Immunizations Vaccine Date Status Comments Flu (split) (3 yrs or older) administered Source: Other Provider Pneumo (2 yrs or older)(PPV) administered Source: Other Provider Payers Payer name Insurance type Covered republican ID Authoriza tion(s) [place] [id number] BC ([facility]) [id number] [facility] [id number] Social History Type Description Quantity Date Captured [...] ordered Future Order: Lab Order CMP ([id number]), Ordered on: Ordered Future Order: Lab Order PTH, Int act ([id number]), Ordered on: Ordered Future Order: Lab Order TSH ([id number]), Ordered on: Ordered Future Order: Lab Order Vitamin D, 25-Hydroxy ([id number]), Ordered on: Ordered Future Order: Lab Order Phosphor us ([id number]), Ordered on: Ordered Future Order: Lab Order CBC ([id number]), Ordered on: Ordered Future Order: Radiology Order Bakari ne Density DXA 1 Or More Sites Axial Skeleton ([id number]), Ordered on: Ordered Future Order: Radiology Order CT Bone Density ([id number]), Ordered on: Ordered Future Order: Radiology Order Sp ine Xray Thoracic 2 Views ([id number]), Ordered on: Ordered Future Order: Lab Order BASIC ME TABOLIC PANEL (BMP), Ordered on: Ordered Future Order: Lab Order TSH (TSH), Ordere d on: Ordered Future Order: Lab Order PTH RELA NABEEL PEPTIDE (PTHRP), Ordered on: Ordered Future Order: Lab Order VITAMIN D 25-HYDROXY (VITD), Ordered on: Ordered Future Order: Radiology Order Kn ee Xray Complete 4 Or More Views ([id number]), Ordered on: Ordered Future Order: Radiology Order Kn ee Xray 3 Views ([id number]), Ordered on: Ordered History Of Present Illness [...] treatment plan. Related to Osteopenia, Disorder Bone/Cartilage Ordering Bone Density/labs Relat ed to Bone disorder Patient was educated on the diagnosis and treatment plan. Related to Bone disorder activities as trinh you, one time therapy appt,nap 500mg,call for questions Related to Pain In Lower Leg (Knee) / Patellofemoral Syndrome Patient was educated on the diagnosis and [...]
[2024-09-04 14:55] LABS: Anion Gap 11 mmol/L (4-12); Blood Urea Nitrogen 14 mg/dL (9-20); Calcium 9.7 mg/dL (8.4-10.2); Carbon Dioxide 29 mmol/L (22-30); Chloride 104 mmol/L (98-107); Estimated Glomerular Filt Rate > 60; Glucose 90 mg/dL (65-110); Potassium 4.3 mmol/L (3.4-5.0); Sodium 144 mmol/L (137-145)
== END 2024-09-04 12:47 | disposition home or self-care (01) ==
PROVIDERS: PCP Family Medicine; Visit Provider Nurse Anesthetist, Certified Registered
DX: Z01.818 Encounter for other preprocedural examination (principal); R94.31 Abnormal electrocardiogram [ECG] [EKG]
CPT/HCPCS: 36415; 80048; 93005

== ENCOUNTER 2024-09-12 12:12 | Emergency (ER) | payer MEDICARE, BC, OTHER, SELFPAY ==
[2024-09-12] VITALS (14 sets, daily range): BP systolic 50–93; BP diastolic 41–70; PULSE 75–143; RESP 4–28; O2SAT 81–95
--- NOTE | 2024-09-12 12:29 | PC.NURSE ---
EDP intubated pt at 1221 using etomidate and succinylcholine. 7.5 ETT tube was placed, 28 at the lip OG was placed at 1228 measuring 55 at the lip. auscultation used to confirm placement EDP Dr. Mckeon placed central line at 1232
--- NOTE | 2024-09-12 12:34 | PC.NURSE ---
EDP gave verbal order for 2 NS bolus due to pt presure
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
[2024-09-12] MEDS: MORPHINE SULFATE INJ (*CRX) 10 MG/ML AMP 5 MG IV PUSH (12:52)
[2024-09-12] MEDS: LORazepam INJ (*CRX) 2 MG/ML VIAL IV PUSH ×2 (12:54→15:05)
--- NOTE | 2024-09-12 12:57 | PC.NURSE ---
comfort medications given, morphine and Ativan. EDP, RT, [place], pt , and this RN all at bedside at this time to extubate pt pt was extubated at 1259 RT and EDP suctioned pt after extubation
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
--- NOTE | 2024-09-12 13:04 | PC.NURSE ---
oral airway placed at this time by RT and EDP to help pt due to his snoring respirations and gurgling
[2024-09-12] MEDS: RAPID SEQUENCE INTUBATION KIT 1 EACH (13:16)
[2024-09-12] MEDS: MORPHINE SULFATE (*CRX) 2 MG/ML INJ IV PUSH ×2 (13:22→13:56)
--- OUTSIDE RECORDS SUMMARY | 2024-09-12 13:51 | XMS_ITS | Clinical Summary ---
Author Organization [facility] Address [address] [place] [address] Care Team Providers Care Double Backer Name Role Phone Sona Tapia MD Primary Care Provider + Source Comments [facility],non-owned Affiliates and Associated Physician Practices is amultiple site organization consisting of ambulatory clinics and hospital sitesin [place], [place], [place] and [place]. This disclosure is being madepursuant to the Care Everywhere program and may not contain all information available regarding this patient. Last updated 18.[facility] Allergies No known active allergies Medications * [...] to complete this topic MENINGOCOCCAL (Group B) VACC INE SHARED DECISION-MAKING Aged Out No longer eligibl e based on patient's age to complete this topic MENINGOCOCCAL GROUPS A/C/Y/W VACCINE Aged Out No longer eligible b ased on patient's age to complete this topic Care Teams Double Backer Relationship Specialty Start Date End Date Sona Tapia MD [address] [place] [address] PCP - General 04/05/18
--- OUTSIDE RECORDS SUMMARY | 2024-09-12 13:51 | XMS_ITS | Clinical Summary ---
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
--- OUTSIDE RECORDS SUMMARY | 2024-09-12 13:51 | XMS_ITS | Continuity of Care Document ---
Author Organization [facility] Address [address] [place] [address] Phone Care Team Providers Care Hip Hop Dancer Name Role Phone Mustapha Varner PA-C Unavailable [...] Diagnoses Date Provider Providers Copied on Encounter [facility], [address] [place] [address], [id number], tel:[phone] SOA PA left carpal tunnel syndrome (chief complaint) Carpal tunnel syndrome, left upper limb Apr-0 5-201 7 Gardenia Luciano. [address], [place], [id number] , [place]. tel:[phone] [facility], [address] [place] [address], [id number], tel:[phone] SOA PA hand (chief complaint) Carpal tunnel syndrome, left upper limbCarpal tunnel syndrome, right upper limb Mar-0 8-201 7 Gardenia Luciano. [address], [place], [id number] , [place]. tel:[phone] [facility], [address] [place] [address], [id number], tel:[phone] SOA PA No Information Mar-0 8-201 7 Gardenia Luciano. [address], [place], [id number] , [place]. tel:[phone] Referring Provider: Mustapha Howe, [address] [place], [address] . tel:[phone] [facility], [address] [place] [address], [id number], tel:[phone] [facility] Carpal tunnel syndrome, left upper limb Mar-0 7-201 7 Shahab Bermeo. [address] [place] [address], [id number] , . tel:[phone] Referring Provider: Regino Polo, [address] [place] [address], [id number] . tel:[phone] [facility], [address] [place] [address], [id number], tel:[phone] DELIO WALDRON No Information Mar-0 7-201 7 Gardenia Luciano. [address] [place] [address], [id number] , . tel:[phone] Referring Provider: Mustapha Howe, [address] [place], [address] . tel:[phone] [facility], [address] [place] [address], [id number], tel:[phone] [facility] No Information Mar-0 6-201 7 Gianni Lopez. [address] [place] [address], [id number] , . tel:[phone] Referring Provider: John Rojas, [address] [place] [address], [id number] . tel:[phone] [facility], [address] [place] [address], [id number], [place] tel:[phone] [facility] Carpal tunnel syndrome, left upper limb Feb-2 3-201 7 Shahab Bermeo. [address] [place] [address], [id number] , . tel:[phone] Referring Provider: Regino Polo, [address] [place] [address], [id number] . tel:[phone] [facility], [address] [place] [address], [id number], tel:[phone] [facility] Carpal tunnel syndrome, left upper limb 7 Rodolfo Lacy. [address] [place], [place], [id number] , . tel:[phone] [facility], [address] [place] [address], [id number], tel:[phone] [facility] No Information 7 Rodolfo Lacy. [address] [place], [place], [id number] , [place]. tel:[phone] Office/outpa tient visit,est, mod [facility], [address] [place] [address], [id number], tel:[phone] SOA PA general orthopedic (chief complaint)Ost eoporosis (chief complaint) Disorder of bone, unspecifiedChr onic fatigue 7 Dequan Marrero. [address] [place], [place], [id number] , [place]. tel:[phone] [facility], [address] [place] [address], [id number], tel:[phone] [facility] No Information 7 Gianni Lopez. [address] [place] [address], [id number] , . [phone] Referring Provider: John Rojas, [address] [place] [address], [id number] . tel:[phone] Office/outpa tient visit,est, mod [facility], [address] [place] [address], [id number], tel:[phone] SOA PA bilateral carpal tunnel syndrome (chief complaint) Carpal tunnel syndrome of right wristCarpal tunnel syndrome of left wristCarpal tunnel syndrome of left wrist b 7 Gardenia Luciano. [address] [place] [address], [id number] , [place]. tel: [phone] Office/outpa tient visit,est, [facility], [address] [place] [address], [id number], tel:[phone] DELIO WALDRON general orthopedic (chief complaint) Osteopenia, Disorder Bone/Cartilage 5 Shayy Vaibhav. [address] [place] [address], [id number] , . tel:[phone] Referring Provider: Vaibhav Gordon, [address] [place] [address], [address] . tel:[phone] Office/outpa tient visit,[facility], [facility], [address] [place] [address], [id number], tel:[phone] DELIO WALDRON Osteoporosis (chief complaint) FatigueBone disorder 5 Shayy Vaibhav. [address] [place] [address], [id number] , . tel:[phone] Office/outpa tient visit,est, [facility], [address] [place] [address], [id number], tel:[phone] [facility] knee (chief complaint) Pain In Lower Leg (Knee) / Patellofemoral SyndromeArthri tis Knee Localized Primary (osteoarthriti s) 4 Dixon Bledsoe. [address] [place] [address], [id number] , . tel:[phone] Referring Provider: Rakan Howe, [address] [place] [address], [address] . tel:[phone] Office/outpa tient visit,[facility], [facility], [address] [place] [address], [id number], tel:[phone] [facility] elbow (chief complaint) Arthritis Elbow, Localized Primary (Osteoarthriti s) 4 Dixon Bledsoe. [address] [place] [address], [id number] , . tel:[phone] [facility], [address] [place] [address], [id number], tel:[phone] [facility] Pain In Elbow Joint 4 Dixon Rakan. [address] [place] [address], [id number] , . tel:[phone] Referring Provider: Rakan Howe, [address] [place] [address], [address] . tel:[phone] [facility], [address] [place] [address], [id number], tel:[phone] [facility] No Information 4 Dixon Bledsoe. [address] [place] [address], [id number] , . tel:[phone] Referring Provider: Rakan Howe, [address] [place] [address], [address] . tel:[phone] Office/outpa tient visit,[facility], [facility], [address] [place] [address], [id number], tel:[phone] [facility] elbow (chief complaint) Pain In Elbow JointBilling Review 4 Dixon Bledsoe. [address] [place] [address], [id number] , . tel:[phone] Family History Family Member Type Diagnosis Age At Onset Problem (finding) Family history of alzhe cipriano's disease Problem (finding) Family history of Cance r, unknown Immunizations Vaccine Date Status Comments Flu (split) (3 yrs or older) administered Source: Other Provider Pneumo (2 yrs or older)(PPV) administered Source: Other Provider Payers Payer name Insurance type Covered democrat ID Authoriza tion(s) [place] [id number] [place] ([facility]) [id number] [facility] [id number] Social History Type Description Quantity Date Captured [...] ordered Future Order: Lab Order CMP ([id number]), Ordered on: Ordered Future Order: Lab Order PTH, Int act ([id number]), Ordered on: Ordered Future Order: Lab Order TSH ([id number]), Ordered on: Ordered Future Order: Lab Order Vitamin D, 25-Hydroxy ([id number]), Ordered on: Ordered Future Order: Lab Order Phosphor us ([id number]), Ordered on: Ordered Future Order: Lab Order CBC ([id number]), Ordered on: Ordered Future Order: Radiology Order Bakari ne Density DXA 1 Or More Sites Axial Skeleton ([id number]), Ordered on: Ordered Future Order: Radiology Order CT Bone Density ([id number]), Ordered on: Ordered Future Order: Radiology Order Sp ine Xray Thoracic 2 Views ([id number]), Ordered on: Ordered Future Order: Lab Order BASIC ME TABOLIC PANEL (BMP), Ordered on: Ordered Future Order: Lab Order TSH (TSH), Ordere d on: Ordered Future Order: Lab Order PTH RELA NABEEL PEPTIDE (PTHRP), Ordered on: Ordered Future Order: Lab Order VITAMIN D 25-HYDROXY (VITD), Ordered on: Ordered Future Order: Radiology Order Kn ee Xray Complete 4 Or More Views ([id number]), Ordered on: Ordered Future Order: Radiology Order Kn ee Xray 3 Views ([id number]), Ordered on: Ordered History Of Present Illness [...] Arthritis Elbow, Localized Primary (Osteoarthritis) activities as rtinh you, rtc after mri approval,call for questions Related to Pain In Elbow Joint Assessments Type Assessment Date assessment Carpal tunnel syndrome, left upp er limb Patient Care Teams Name Effective Dates (start - stop) Status Members No Information
--- OUTSIDE RECORDS SUMMARY | 2024-09-12 13:51 | XMS_ITS | Clinical Summary ---
Author Organization [facility] Address [address] [address] [place] [address] Care Team Providers Care Rubber Stamp Die Inspector Name Role Phone Sona Tapia MD Primary Care Provider [phone] Allergies No known active allergies Medications irbesartan-hydro [...] Device Data STL ABSTRACTION Provider, Abstract 07/26/2024 [facility] [address], [address] [place] [address] Anthony Durán MD Mild cognitive impairment with [...] Comments Blood Pressure 112/68 06/30/2023 10:32 AM CUSHION ASSEMBLER Pulse 73 06/30/2023 10:32 AM CUSHION ASSEMBLER Temperature - - Respiratory Rate - - Oxygen Saturation 97% 06/30/2023 10:32 AM CUSHION ASSEMBLER Inhaled Oxygen Concentration - - Weight 83.9 kg (185 lb) 06/30/2023 10:32 AM CUSHION ASSEMBLER Height 177.8 cm (5' 10 ) 06/30/2023 10:32 AM CUSHION ASSEMBLER Body Mass Index 26.54 06/30/2023 10:32 AM CUSHION ASSEMBLER Plan of Treatment Health Maintenance Due Date [...] 06/27/2003 ZOSTER VACCINE Completed 04/07/2021, 02/03/2021 Insurance [facility] [employer] MEDICARE PART A AND B Care Teams Rubber Stamp Die Inspector Relationship Specialty Start Date End Date Sona Tapia MD PCP - General Family Practice 03/15/23
--- OUTSIDE RECORDS SUMMARY | 2024-09-12 13:51 | XMS_ITS | Clinical Summary ---
Author Organization [facility] Address [facility] [place] [address] Care Team Providers Care Machine Molder Name Role Phone Oliva Andrade Primary Care Provider [phone] Medications esomeprazole (NEXIUM) 40 MG capsule Take [...] Department Care Team Description 07/24/2024 11:00 AM CHIEF ANALYTICS OFFICER Office Visit [facility] - [address], [address] [place] [address] Isadora Lovell MD New Patient 07/24/2024 Travel [...] Comments Blood Pressure 120/79 07/24/2024 10:48 AM CHIEF ANALYTICS OFFICER Pulse 69 07/24/2024 10:48 AM CHIEF ANALYTICS OFFICER Temperature - - Respiratory Rate - - Oxygen Saturation 95% 07/24/2024 10:48 AM CHIEF ANALYTICS OFFICER Inhaled Oxygen Concentration - - Weight 82.6 kg (182 lb) 07/24/2024 10:48 AM CHIEF ANALYTICS OFFICER Height - - Body Mass Index - - Plan of Treatment Upcoming Encounters Date Type Department Care Team (Late st Contact Info) Description 01/21/2025 9:20 AM CDT Office Visit [facility] - [address], [address] [place] [address] Isadora Lovell MD [address] [place] [address] Health Maintenance Due Date Last Done Comments [...] , 03/20/2023, Additional history exists PHQ-2 (Physician [place]) Completed 07/24/2024 Meningococcal B Vaccine Aged Out No l onger eligible based on patient's age to complete this topic Meningococcal Vaccine Aged Out No ramya keyonna eligible based on patient's age to complete this topic RSV Immunizations Under 20 Months Aged Out No longer eligible based on patient's age to complete this topic Insurance MEDICARE [facility] Universal Ad [facility] Care Teams Machine Molder Relationship Specialty Start Date End Date Oliva Andrade PA [address], [address] [place] [address] PCP - General PHYSICIAN CONTINUOUS CRUSHER OPERATOR 07/24/24
--- NOTE | 2024-09-12 14:20 | PC.NURSE ---
LIV called Flavia w/no answer at 12:21 & 12:26
--- NOTE | 2024-09-12 14:26 | PC.NURSE ---
12:23 I called [facility] and did a weather check, they declined due to weather. LIV
--- NOTE | 2024-09-12 15:08 | PC.NURSE ---
pt was requiring his morphine PRN Q30 dose every 30 minuets. this RN asked EDP if we could up his dose and EDP gave a verbal order of 5mg Q30min PRN to help with the pt pain
[2024-09-12] MEDS: MORPHINE SULFATE (*CRX) 2 MG/ML INJ 5 MG IV PUSH (15:12)
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
== END 2024-09-12 18:28 | disposition expired ==
PROVIDERS: Emergency Provider Emergency Medicine; PCP Family Medicine
DX: S01.83XA Puncture wound without foreign body of other part of head, initial encounter (principal); I10 Essential (primary) hypertension; N40.0 Benign prostatic hyperplasia without lower urinary tract symptoms; K21.00 Gastro-esophageal reflux disease with esophagitis, without bleeding; M19.90 Unspecified osteoarthritis, unspecified site; G47.33 Obstructive sleep apnea (adult) (pediatric); Z66 Do not resuscitate; Z85.46 Personal history of malignant neoplasm of prostate; Z86.73 Personal history of transient ischemic attack (TIA), and cerebral infarction without residual deficits; Z85.828 Personal history of other malignant neoplasm of skin; Z87.891 Personal history of nicotine dependence; Z90.79 Acquired absence of other genital organ(s); S01.93XA Puncture wound without foreign body of unspecified part of head, initial encounter
CPT/HCPCS: 31500; 36556; 96374; 96375; 96376; 99291; C1751; J0330; J2060; J2250; J2270; J3010; J7030